=== PATIENT | male | born 1955 | race Caucasian/White ===

== ENCOUNTER → 2018-03-14 09:21 | Outpatient (CLI) | payer BC, SELFPAY ==
--- NOTE | 2018-03-14 09:24 | US_ITS ---
US abdomen complete HISTORY: Right-sided abdominal pain ITS.REASON: ABD PAIN ORDERING PHYSICIAN: Jaky Mendoza PATIENT AGE: 62 years COMPARISON: None FINDINGS: PANCREAS:Poorly demonstrated due to overlying bowel gas LIVER:No focal liver lesions demonstrated. Homogeneous echogenicity. No intrahepatic biliary ductal dilatation evident. There is increased echogenicity of the liver suggesting fatty infiltration. No focal liver lesions demonstrated. RIGHT KIDNEY:No hydronephrosis. 2 cm right renal cyst noted superiorly. LEFT KIDNEY:Unremarkable. No hydronephrosis. Normal size and echogenicity. GALLBLADDER:No gallstones, gallbladder wall thickening, pericholecystic fluid, or biliary dilatation. Common bile duct is 2 mm AORTA:No evidence of aneurysmal dilatation. SPLEEN:Unremarkable. Normal size and echogenicity ASCITES:None demonstrated. IMPRESSION: 1. No acute finding. 2. Fatty liver. 3. Unremarkable gallbladder. No gallstones. 4. 2 cm right renal cyst
== END ==
PROVIDERS: PCP Internal Medicine Adolescent Medicine; Visit Provider Nurse Practitioner Family
DX: R10.9 Unspecified abdominal pain (principal)
CPT/HCPCS: 76700

== ENCOUNTER → 2018-06-25 10:17 | Outpatient (CLI) | payer BC, SELFPAY ==
[2018-06-25 11:17] LABS: Alanine Aminotransferase 20 U/L (12-78); Albumin Level 4.1 gm/dL (3.4-5.0); Albumin/Globulin Ratio 1.2 (1.1-1.8); Alkaline Phosphatase 126 U/L (46-116); Anion Gap 13.2 mEq/L (5-15); Aspartate Amino Transferase 13 U/L (15-37); Bilirubin,Total 0.8 mg/dL (0.2-1.0); Blood Urea Nitrogen 18 mg/dL (7-18); Calcium 9.1 mg/dL (8.5-10.1); Carbon Dioxide 27 mmol/L (21.0-32.0); Chloride 104 mmol/L (98-107); Chol/HDL Ratio 5.7 (1-3.5); Cholesterol 224 mg/dL (140-200); Creatinine,Serum 0.97 mg/dL (0.70-1.30); Estimated Glomerular Filt Rate 79 ml/min (>60); GFR (African American) 96 ML/MIN (>60); Globulin 3.5 gm/dl (1.3-3.2); Glucose 169 mg/dL (74-106); HDL Cholesterol 39 mg/dL (27-67); LDL Cholesterol 161 mg/dL (0-130); Potassium 4.2 mmoL/L (3.5-5.1); Sodium 140 mmol/L (136-145); Total Protein,Serum 7.6 gm/dL (6.4-8.2); Triglycerides 120 mg/dL (30-200); VLDL Cholesterol 24 mg/dL (0-40)
[2018-06-25 11:58] LABS: Prostate Specific Ag Screen < 0.1 ng/mL (0.0-4.0)
[2018-06-25 12:00] LABS: Hemoglobin A1C 6.9 % (0.0-7.0)
== END ==
PROVIDERS: PCP Internal Medicine Adolescent Medicine; Visit Provider Internal Medicine Adolescent Medicine
DX: Z00.00 Encounter for general adult medical examination without abnormal findings (principal); E78.5 Hyperlipidemia, unspecified; E11.9 Type 2 diabetes mellitus without complications; Z85.46 Personal history of malignant neoplasm of prostate
CPT/HCPCS: 36415; 80053; 80061; 83036; G0103

== ENCOUNTER → 2018-08-14 15:07 | Outpatient (CLI) | payer BC, SELFPAY ==
[2018-08-14 15:26] LABS: Basophils % 0.3 % (0.1-2.0); Eosinophils # 0.1 K/mm3 (0.0-0.4); Eosinophils % 1.1 % (0.1-12.0); Hematocrit 53.2 % (42.0-52.0); Hemoglobin 17.6 g/dL (14.1-18.0); Lymphocytes # 2.3 K/mm3 (0.7-4.5); Lymphocytes % 17.6 % (10-50); Mean Corpuscular HGB Conc 33.1 g/dL (31.8-35.4); Mean Corpuscular Hemoglobin 30.1 pg (27.0-31.2); Mean Corpuscular Volume 90.7 fl (80-94); Monocytes # 0.8 K/mm3 (0.1-1.0); Monocytes % 5.7 % (1.7-9.3); Neutrophils % 75.4 % (37.0-80.0); Platelet Count 235 K/mm3 (142-424); Red Blood Count 5.86 M/mm3 (4.60-6.20); Red Cell Distribution Width 13.8 % (11.5-17.5); White Blood Count 13.3 K/mm3 (4.8-10.8)
[2018-08-14 16:00] LABS: Alanine Aminotransferase 37 U/L (12-78); Albumin Level 3.9 gm/dL (3.4-5.0); Albumin/Globulin Ratio 0.9 (1.1-1.8); Alkaline Phosphatase 127 U/L (46-116); Anion Gap 14.9 mEq/L (5-15); Aspartate Amino Transferase 84 U/L (15-37); Bilirubin,Total 1.1 mg/dL (0.2-1.0); Blood Urea Nitrogen 11 mg/dL (7-18); CKMB Relative Index 6.5 U/L (0-4.0); Calcium 8.6 mg/dL (8.5-10.1); Carbon Dioxide 26 mmol/L (21.0-32.0); Chloride 97 mmol/L (98-107); Creatine Kinase 402 U/L (39-308); Estimated Glomerular Filt Rate 62 ml/min (>60); GFR (African American) 75 ML/MIN (>60); Globulin 4.5 gm/dl (1.3-3.2); Glucose 297 mg/dL (74-106); Potassium 3.9 mmoL/L (3.5-5.1); Sodium 134 mmol/L (136-145); Thyroid Stimulating Hormone 0.93 uIU/ml (0.358-3.740); Total Protein,Serum 8.4 gm/dL (6.4-8.2)
[2018-08-14 16:06] LABS: Troponin I 12.38 ng/ml (0.00-0.06)
[2018-08-14 16:55] VITALS: BP 143/86; PULSE 80; RESP 20; O2SAT 94
[2018-08-14 16:57] VITALS: BMI 31.2
[2018-08-14 17:00] VITALS: BP 154/87; PULSE 83; RESP 20; O2SAT 94
[2018-08-14 17:05] VITALS: BP 169/110; PULSE 84; RESP 20; O2SAT 94
[2018-08-14 17:10] VITALS: BP 153/106; PULSE 87; RESP 20; O2SAT 94
[2018-08-14 17:15] VITALS: BP 130/82; PULSE 84; PULSE 85; PULSE 87; RESP 20; O2SAT 93; O2SAT 94
[2018-08-14 17:40] VITALS: BP 137/92; PULSE 82; RESP 20; O2SAT 100
== END ==
PROVIDERS: Internal Medicine; PCP Internal Medicine Adolescent Medicine; Visit Provider Nurse Practitioner Family
DX: R07.89 Other chest pain (principal); R06.09 Other forms of dyspnea
CPT/HCPCS: 36415; 80053; 82550; 82553; 84443; 84484; 85025; 93005; 99152; 99153; C1725; C1769; C1876; J1644

== ENCOUNTER 2018-08-14 15:49 | Inpatient (IN) ==
[2018-08-14 16:08] LABS: Basophils # 0.1 K/mm3 (0-0.2); Basophils % 0.4 % (0.1-2.0); Eosinophils # 0.1 K/mm3 (0.0-0.4); Eosinophils % 0.4 % (0.1-12.0); Hematocrit 52.5 % (42.0-52.0); Hemoglobin 17.6 g/dL (14.1-18.0); Lymphocytes # 2.3 K/mm3 (0.7-4.5); Lymphocytes % 18.3 % (10-50); Mean Corpuscular HGB Conc 33.4 g/dL (31.8-35.4); Mean Corpuscular Hemoglobin 30.2 pg (27.0-31.2); Mean Corpuscular Volume 90.3 fl (80-94); Mean Platelet Volume 7.8 fl (7.4-10.4); Monocytes # 0.8 K/mm3 (0.1-1.0); Monocytes % 6.2 % (1.7-9.3); Neutrophils # 9.2 K/mm3 (1.8-7.8); Neutrophils % 74.6 % (37.0-80.0); Platelet Count 233 K/mm3 (142-424); Red Blood Count 5.82 M/mm3 (4.60-6.20); Red Cell Distribution Width 13.7 % (11.5-17.5); White Blood Count 12.3 K/mm3 (4.8-10.8)
--- NOTE | 2018-08-14 16:10 | Emergency Department Note ---
ED Disposition Clinical Impression: Acute inferolateral myocardial infarction Disposition: Admitted As Inpatient Condition on Discharge: Critical Referrals: Provider,Referral, [Primary Care Provider] - - Critical Care Critical Care Time: Yes (30 minutes) Attestation: On 08/14/18, the high probability of a clinically significant, sudden or life threatening deterioration of the following system(s) required my full and direct attention, intervention and personal management. The time I documented below is in addition to time spent performing reported procedures but includes the following listed in this critical care notation. Vital system(s) involved:: Circulatory Failure, Central Nervous System, Metabolic Failure My critical care processes included: Assessment & monitoring of V/S Comment: Discussed case with Wire Steward operations project manager (Dr. Kohler). Patient taken to mill laborer from ED. Medical Decision Making - Medical Records Medical records reviewed: Yes: I reviewed the patient's medical records. - Klaus Inquiry Pt receiving controlled substance: No Klaus was queried for this patient: No Vital Signs: 08/14/18 15:50 Temperature 98.4 F Temperature Source Oral Pulse Rate [Apical] 94 H Respiratory Rate 16 Blood Pressure [Right Arm] 145/106 H Blood Pressure Mean [Right Arm] 119 Blood Pressure Source [Right Arm] Automatic Cuff Blood Pressure Position [Right Arm] Sitting 02 Sat by Pulse Oximetry 96 Oxygen Delivery Method Room Air Orders (Tests/Meds): ED MEDICATIONS Discontinued Medications Generic Name Dose Route Start Last Admin Trade Name Freq PRN Reason Stop Dose Admin Heparin Sodium (Porcine) 10,000 unit 08/14/18 15:53 Heparin 1,000 Units/Ml 10ml Vial (Service Unit Operator) IV 08/14/18 15:54 ONCE ONE Ticagrelor 180 mg 08/14/18 15:51 Brilinta 90mg Tablet PO 08/14/18 15:52 ONCE ONE ORDERS Category Date Time Status Chest XR -- portable [XR chest portable] Stat Exams 08/14/18 15:57 Ordered CKMB [Creatine Kinase MB] Stat Lab 08/14/18 15:55 Ordered Complete Blood Count Auto Diff Stat Lab 08/14/18 15:55 Ordered Comprehensive Metabolic Panel Stat Lab 08/14/18 15:55 Ordered Creatine Kinase Stat Lab 08/14/18 15:55 Ordered Troponin I Stat Lab 08/14/18 15:55 Ordered - Radiology Data #1 Image(s): Chest CXR pending - ECG Data Tracing #1 I reviewed this ECG and interpreted as documented below: Additional Comments: Acute inferolateral NM Chest Pain HPI - General Chief Complaint: Chest Pain Stated Complaint: chest pain Time Seen by Provider: 08/14/18 15:50 Mode of Arrival: Wheelchair Limitations: No Limitations Description of Symptoms (Recalled from ER Triage Doc. by RN): Pt reports had chest heaviness today. Pt was seen by PCP today and sent for outpt testing pt brought to ER from respiratory therapy department. Pt denies chest pain/heaviness at this time. Pt reports "I just don't feel very good, I'm tired feeling". - History of Present Illness HPI narrative: Patient brought down to ED from PCP clinic for abnormal EKG. Patient denies any acute complains. Denies any chest pain, sob. States he had moderate chest pain yesterday AM. Symptoms lasted for several hours. Did no seek help at that time. Denies fever, chills, cough. No ASA given. Patient reports allergy to NSAIDs. Onset (ago): day(s) (1) Duration: now resolved Activity at onset: during rest Pain location: substernal Severity: moderate Quality: tightness, aching, heaviness Pain radiation: none Relieving factors: rest Exacerbating factors: nothing - Related Data Home Medications Medication Instructions Recorded Confirmed Metformin HCl [Metformin HCl ER] 500 mg PO BID 08/14/18 08/14/18 Allergies Allergy/AdvReac Type Severity Reaction Status Date / Time meloxicam [From [facility]OBIC] Allergy Unknown Unverified 09/04/17 14:58 [facility] History I have reviewed the patient's past medical history: Yes ROS Obtained: Yes All systems reviewed & no additional complaints Physical Exam - General General appearance: alert, in no apparent distress - Head Head exam: atraumatic, normocephalic, normal inspection - Eye Eye exam: Present: normal appearance, PERRL, EOMI - ENT ENT exam: Present: normal exam, normal oropharynx, mucous membranes moist, TM's normal bilaterally, normal external ear exam - Neck Neck exam: Present: normal inspection, full ROM, trachea midline. Absent: meningismus, lymphadenopathy - Chest Chest inspection: Present: normal inspection, symmetric chest wall rise. Absent: tenderness - Respiratory Respiratory exam: Present: normal lung sounds bilaterally. Absent: respiratory distress - Cardiovascular Cardiovascular exam: Present: regular rate, normal rhythm. Absent: JVD - Abdominal Exam Abdominal exam: Present: soft, normal bowel sounds. Absent: distention, tenderness, guarding - Extremities Exam Extremities exam: Present: normal inspection, full ROM, normal capillary refill. Absent: calf tenderness - Back Exam Back exam: Present: normal inspection. Absent: tenderness - Neurological Exam Neurological exam: Present: alert, oriented X3 - Psychiatric Psychiatric exam: Present: normal affect, normal mood - Skin Skin exam: Present: warm, dry, intact, normal color - Lymphatic Lymphatic Findings: no adenopathy
[2018-08-14 16:14] LABS: Anion Gap 15.7 mEq/L (5-15); Calcium 9.1 mg/dL (8.5-10.1); Potassium 3.7 mmoL/L (3.5-5.1)
[2018-08-14 16:29] LABS: INR 0.95 (0.9-1.1); Prothrombin Time 9.8 seconds (9.4-11.8)
--- NOTE | 2018-08-14 18:27 | History & Physical Report ---
*Admission Date: 08/14/18 *Chief complaint: fatigue, exertional dyspnea *History of present illness: 62 year old male with a h/o diabetes, previous tobacco use, hyperlipidemia and HTN presented to PCP office for evaluation of chest pressure and exertional shortness of breath. Patient reports he woke up the night before last and it felt like "a concrete block was laying on my chest." Anterior chest pressure persisted through the day yesterday despite tums, Duexis and pepcid. His give him zantac last evening. States he "belched a bunch" and pressure resolved around 0200 this morning. Blood pressure was elevated 180/100's last night, as well. Patient took lisinopril in the past, stopped taking after approx one month as it made him feel "horrible." He has declined b/p meds and statin since that time. LDL last month 154. Highest A1C was 7, at that point earlier this year he finally agreed to metformin. Further reports he has felt fatigued over the last week, states "I don't have enough energy to move." Reports shortness of breath with exertion that has increased over the last 3-6 months. with chronic lung disease reports "he was more short of breath then me when he climbed the ladder to put Nadia lights last week." Currently denies any chest pressure or shortness of breath. Patient was sent from office to [facility] for EKG and labs. EKG revealed ST elevation in inferior leads and troponin of 12. He was sent to the ED where recyclable materials sorter was activated. In the recyclable materials sorter patient received 2 stents in distal circumflex. He was noted to have severe inferior apical hypokinesis with EF 40-45% and multiple other lesions that will require further invention. (See cath report for details). Patient did well during the procedure and was admitted to step-down unit for further evaluation. [facility] History I have reviewed the patient's past medical history: Yes Medical History: Reports:: Cancer (prostate), Diabetes Mellitus Type 2, Heart Murmur Denies:: Diabetes Mellitus Type 1 Laterality Cases: Bilateral: Other Other Surgeries: Yes: Cardiac Catheterization (08/14/18), Coronary Stent (08/14/18) - *Social History Educational Level: Completed High School Smoking Status: Former smoker #Yrs smoked (if former smoker): 52 Smoking End Date: 11 years ago Alcohol Intake: never Occupational Status: retired Housing: house Household Members: spouse - Psychiatric History Expresses thoughts of harming self/others: None Suicide Plan Description: No Plan *Family Hx:: Cancer, Diabetes, Heart Attack, Hypertension Review of Systems - Review of Systems Review of systems:: pertinent systems reviewed and negative unless documented below - Constitutional Reports fatigue - *Cardiovascular Reports chest pain, Reports shortness of breath with activity Meds Home Medications Medication Instructions Recorded Confirmed Type Metformin HCl [Metformin HCl ER] 500 mg PO BID 08/14/18 08/14/18 History Allergies Allergy/AdvReac Type Severity Reaction Status Date / Time meloxicam [From [email or web address]] Allergy Unknown Verified 08/14/18 17:24 Exam Vital signs and Labs for Last 24 Hours: Temp Pulse Resp BP Pulse Ox 97.8 F 79 20 139/78 96 08/14/18 17:55 08/14/18 17:55 08/14/18 17:55 08/14/18 17:55 08/14/18 17:55 Laboratory Results - last 24 hr 08/14/18 15:55: WBC 12.3 H, RBC 5.82, Hgb 17.6, Hct 52.5 H, MCV 90.3, MCH 30.2, MCHC 33.4, RDW 13.7, Plt Count 233, MPV 7.8, Neut % (Auto) 74.6, Lymph % (Auto) 18.3, Loup % (Auto) 6.2, Eos % (Auto) 0.4, Baso % (Auto) 0.4, Neut # (Auto) 9.2 H, Lymph # (Auto) 2.3, Loup # (Auto) 0.8, Eos # (Auto) 0.1, Baso # (Auto) 0.1 08/14/18 15:55: Sodium 134 L, Potassium 3.7, Chloride 98, Carbon Dioxide 24, Anion Gap 15.7 H, BUN 11, Creatinine 1.12, Estimated Creat Clear 101, Estimated GFR 67, Est GFR ( Amer) 81, Glucose 275 H, Calcium 9.1 08/14/18 15:55: PT 9.8, INR 0.95 08/14/18 17:29: Activated Clotting Time 318 H* 08/14/18 17:44: Activated Clotting Time 310 H* I & O for Last 24 hours: Intake & Output 08/12/18 08/13/18 08/14/18 08/15/18 11:59 11:59 11:59 11:59 Intake Total 240 / 240 Balance 240 / 240 Weight 225 lb 4.011 oz Narrative: Alert and oriented x3. Rate and rhythm regular. No murmur in supine or upright position. Lung sounds clear and equal. Abdomen soft and nontender. Normoactive bowel sounds. No LE edema. Pulses 2+ bilaterally. No carotid bruit. No JVD. ENT exam unremarkable. Skin pink, warm and dry. No acute neuro deficits Assessment and Plan (1) Type 2 diabetes mellitus Current visit: Yes Status: Chronic Qualifiers: Diabetes mellitus skilled nursing insulin use: without skilled nursing use Diabetes mellitus complication status: without complication Qualified Code(s): E11.9 - Type 2 diabetes mellitus without complications Category: Medical Code(s): E11.9 - Type 2 diabetes mellitus without complications (2) Hyperlipemia Current visit: Yes Status: Chronic Qualifiers: Hyperlipidemia type: pure hypercholesterolemia Qualified Code(s): E78.00 - Pure hypercholesterolemia, unspecified; E78.0 - Pure hypercholesterolemia Category: Medical Code(s): E78.5 - Hyperlipidemia, unspecified (3) Essential (primary) hypertension Current visit: Yes Status: Chronic Category: Medical Code(s): I10 - Essential (primary) hypertension (4) History of tobacco abuse Current visit: Yes Status: Resolved Category: Medical Code(s): Z87.891 - Personal history of nicotine dependence (5) History of prostate cancer Current visit: Yes Status: Chronic Category: Medical Code(s): Z85.46 - Personal history of malignant neoplasm of prostate (6) Acute inferolateral myocardial infarction Current visit: Yes Status: Acute Category: Medical Code(s): I21.19 - ST elevation (STEMI) myocardial infarction involving other coronary artery of inferior wall - Assessment and plan all Dx Assessment and Plan for all problems:: Admit to stepdown for monitoring. DAPT with aspirin and brilinta. Start beta caleb. Cardiology recommends lisinopril which patient states made him feel "horrible" in the past. Symptoms were likely unrelated to lisinopril, will disc uss with patient in the am and consider trial tomorrow. Echo scheduled in the am
[2018-08-15 06:05] LABS: Basophils % 0.4 % (0.1-2.0); Eosinophils # 0.1 K/mm3 (0.0-0.4); Eosinophils % 0.8 % (0.1-12.0); Hematocrit 48.3 % (42.0-52.0); Lymphocytes # 2.3 K/mm3 (0.7-4.5); Lymphocytes % 20.9 % (10-50); Mean Corpuscular HGB Conc 33.2 g/dL (31.8-35.4); Mean Corpuscular Hemoglobin 29.6 pg (27.0-31.2); Mean Corpuscular Volume 89.3 fl (80-94); Mean Platelet Volume 7.8 fl (7.4-10.4); Monocytes # 0.7 K/mm3 (0.1-1.0); Platelet Count 221 K/mm3 (142-424); Red Blood Count 5.41 M/mm3 (4.60-6.20); Red Cell Distribution Width 13.7 % (11.5-17.5); White Blood Count 11.1 K/mm3 (4.8-10.8)
[2018-08-15 06:19] LABS: Calcium 8.7 mg/dL (8.5-10.1)
[2018-08-15 06:35] LABS: Chol/HDL Ratio 4.3 (1-3.5)
--- NOTE | 2018-08-15 07:41 | Pharmacy Consult Notes ---
[facility] Pharmacy VTE Monitoring - Patient Demographics Admission date: 08/14/18 Report Date: 08/15/18 Time: 07:40 Allergies/Adverse Reactions: Patient Allergies meloxicam [From MOBIC] Allergy (Unknown, Verified 08/14/18 17:24) Height: 1.8 m Weight: 104.468 kg Patient Problems: Current Active Problems Acute inferolateral myocardial infarction (Acute) Type 2 diabetes mellitus (Chronic) Hyperlipemia (Chronic) Essential (primary) hypertension (Chronic) History of prostate cancer (Chronic) - VTE Risk Labs: VTE Related Lab Results Hgb 17.6 g/dL (14.1-18.0) 08/14/18 15:55 Hct 52.5 % (42.0-52.0) H 08/14/18 15:55 Plt Count 233 K/mm3 (142-424) 08/14/18 15:55 PT 9.8 seconds (9.4-11.8) 08/14/18 15:55 INR 0.95 (0.9-1.1) 08/14/18 15:55 BUN 11 mg/dL (7-18) 08/14/18 15:55 Creatinine 1.12 mg/dL (0.70-1.30) 08/14/18 15:55 Estimated Creat Clear 101 mL/min (50-200) 08/14/18 15:55 VTE Score: 4 VTE Risk Level: Low Risk - Prophylaxis VTE Prophylaxis Ordered?: Yes Types of VTE Prophylaxis: TEDS Knee High Location of Applied Device: Bilateral Lower Extremeties - VTE Diagnosis Confirmed Treatment or plan recommended: Continue Current Treatment
--- NOTE | 2018-08-15 08:01 | Progress Note ---
Internal Medicine - PN: Subj *Date: 08/15/18 *Time: 07:40 Interval history: Patient has not had any further chest pressure or shortness of breath through the night. He had occasional PAC's through the night and required one prn dose of clonidine for SBP 170. This morning SBP 120's. He feels well and has no complaints. Exam Vital signs and Labs for Last 24 Hours: Temp Pulse Resp BP Pulse Ox 97.8 F 75 17 135/69 96 08/14/18 17:55 08/15/18 06:00 08/15/18 06:00 08/15/18 06:00 08/15/18 06:00 Laboratory Results - last 24 hr 08/14/18 15:55: WBC 12.3 H, RBC 5.82, Hgb 17.6, Hct 52.5 H, MCV 90.3, MCH 30.2, MCHC 33.4, RDW 13.7, Plt Count 233, MPV 7.8, Neut % (Auto) 74.6, Lymph % (Auto) 18.3, Burke % (Auto) 6.2, Eos % (Auto) 0.4, Baso % (Auto) 0.4, Neut # (Auto) 9.2 H, Lymph # (Auto) 2.3, Burke # (Auto) 0.8, Eos # (Auto) 0.1, Baso # (Auto) 0.1 08/14/18 15:55: Sodium 134 L, Potassium 3.7, Chloride 98, Carbon Dioxide 24, Anion Gap 15.7 H, BUN 11, Creatinine 1.12, Estimated Creat Clear 101, Estimated GFR 67, Est GFR ( Amer) 81, Glucose 275 H, Calcium 9.1 08/14/18 15:55: PT 9.8, INR 0.95 08/14/18 17:29: Activated Clotting Time 318 H* 08/14/18 17:44: Activated Clotting Time 310 H* 08/14/18 20:33: POC Glucose 226 H 08/15/18 05:50: Triglycerides 135, Cholesterol 175, LDL Cholesterol 107, VLDL Cholesterol 27, HDL Cholesterol 41, Cholesterol/HDL Ratio 4.3 H 08/15/18 06:12: POC Glucose 208 H I & O for Last 24 hours: Intake & Output 08/12/18 08/13/18 08/14/1829/18 11:59 11:59 11:59 11:59 Intake Total 250 / 250 Balance 250 / 250 Weight 230 lb 5 oz Narrative: Alert and oriented x3. Rate and rhythm regular. No LE edema. No murmur. Lung sounds clear and equal. Abdomen soft and nontender Assessment and Plan (1) Type 2 diabetes mellitus Current visit: Yes Status: Chronic Qualifiers: Diabetes mellitus escort blind insulin use: without escort blind use Diabetes mellitus complication status: without complication Qualified Code(s): E11.9 - Type 2 diabetes mellitus without complications Category: Medical Code(s): E11.9 - Type 2 diabetes mellitus without complicat ions (2) Hyperlipemia Current visit: Yes Status: Chronic Qualifiers: Hyperlipidemia type: pure hypercholesterolemia Qualified Code(s): E78.00 - Pure hypercholesterolemia, unspecified; E78.0 - Pure hypercholesterolemia Category: Medical Code(s): E78.5 - Hyperlipidemia, unspecified (3) Essential (primary) hypertension Current visit: Yes Status: Chronic Category: Medical Code(s): I10 - Essential (primary) hypertension (4) History of tobacco abuse Current visit: Yes Status: Resolved Category: Medical Code(s): Z87.891 - Personal history of nicotine dependence (5) History of prostate cancer Current visit: Yes Status: Chronic Category: Medical Code(s): Z85.46 - Personal history of malignant neoplasm of prostate (6) Acute inferolateral myocardial infarction Current visit: Yes Status: Acute Category: Medical Code(s): I21.19 - ST elevation (STEMI) myocardial infarction involving other coronary artery of inferior wall - Assessment and plan all Dx Assessment and Plan for all problems:: Start ARB today as he had intolerance to KALPESH-I in the past. Discussed importance of medication compliance to optimize CV health. Discussed importance of activity restriction until remaining coronary lesions have been repaired. Continue beta caleb. Will monitor b/p, may increase dose later today. Continue DAPT. Transfer to [facility] bed with telemetry. Will monitor overnight and consider d/c home in the am.
--- NOTE | 2018-08-15 08:31 | Consult Report ---
History of Present Illness Consult date: 08/15/18 Requesting physician: Jimmy Echols Consult reason: chest pain Chief complaint: SOA, Fatigue and chest pressure Additional Medical History:: 1. Diabetes mellitus, since 2007 2. History of tobacco use discontinued 11 years ago, previously smoked at least a pack a day A. Mild COPD per patient 3. History of prostate cancer, status post surgery approximately 2007, with no chemo or radiation therapy 4. History of hypertension, untreated 5. Hyperlipidemia, untreated 6. Acute ST segment LA, 08/14/2018 A. Cardiac catheterization, 08/14/2018, ANGIOGRAPHIC RESULTS: 1. The left main artery is normal 2. The left anterior descending artery has ostial 40% stenosis followed by proximal 70% stenosis followed by additional 70-80% stenosis followed by mid vessel 60% stenoses. Distally there are 40% stenoses. 3. The circumflex artery is a co-dominant vessel and has an ostial 60- 70% stenosis followed by a proximal 50% stenoses and 30-40% stenoses throughout the large first obtuse marginal artery. Distally the first obtuse marginal artery is bluntly occluded and the infarct vessel. Following stenting the mid and distal segment was widely patent with good LISE III distal flow 4. The right coronary artery is a co-dominant vessel with proximal 30% mid vessel 40% stenoses and distal 40% stenosis. The distal posterior descending artery has 60 and 70% stenoses while the posterior lateral branch has an ostial 50% and mid vessel 30% stenoses 5. The CARTY ventriculogram reveals left ventricular dilatation with inferior apical severe hypokinesis estimated ejection fraction 40-45% 6. The left ventricular end-diastolic pressure 20 mmHg IMPRESSION: 1. Coronary artery disease as described above 2. ST elevation infarct vessel involve the distal first obtuse marginal artery off the codominant circumflex artery with 100% occlusion reduced to 0% with 2 drug-eluting stents 3. Persistent large regional wall motion abnormality with reduced ejection fraction 4. Mildly elevated LVEDP 5. Persistent moderate to severe disease in the proximal mid LAD and ostial proximal codominant circumflex artery B. Echo, 08/15/2018, pending History of present illness: 62 year old male with a h/o diabetes, previous tobacco use, hyperlipidemia and HTN presented to PCP office for evaluation of chest pressure and exertional shortness of breath. Patient reports he woke up the night before last and it felt like "a concrete block was laying on my chest." Anterior chest pressure persisted through the day yesterday despite tums, Duexis and pepcid. His give him zantac last evening. States he "belched a bunch" and pressure resolved around 0200 this morning. Blood pressure was elevated 180/100's last night, as well. Patient took lisinopril in the past, stopped taking after approx one month as it made him feel "horrible." He has declined b/p meds and statin since that time. LDL last month 154. Highest A1C was 7, at that point earlier this year he finally agreed to metformin. Further reports he has felt fatigued over the last week, states "I don't have enough energy to move." Reports shortness of breath with exertion that has increased over the last 3-6 months. with chronic lung disease reports "he was more short of breath then me when he climbed the ladder to put [place] lights last week." Currently denies any chest pressure or shortness of breath. Patient was sent from office to [facility] for EKG and labs. EKG revealed ST elevation in inferior leads and troponin of 12. He was sent to the ED where canvas shop laborer was activated. In the canvas shop laborer patient received 2 stents in distal circumflex. He was noted to have severe inferior apical hypokinesis with EF 40-45% and multiple other lesions that will require further invention. (See cath report for details). Patient did well during the procedure and was admitted to step-down unit for further evaluation. The above per Jaky Mendoza APRN for Dr. Harmon [facility] History Medical History: Reports:: Cancer (prostate), Diabetes Mellitus Type 2, Heart Murmur Denies:: Diabetes Mellitus Type 1 Laterality Cases: Bilateral: Other Other Surgeries: Yes: Cardiac Catheterization (08/14/18), Coronary Stent (08/14/18) - *Social History Educational Level: Completed High School Smoking Status: Former smoker #Yrs smoked (if former smoker): 52 Smoking End Date: 11 years ago Alcohol Intake: never Occupational Status: retired Housing: house Household Members: spouse - Psychiatric History Expresses thoughts of harming self/others: None Suicide Plan Description: No Plan *Family Hx:: Cancer, Diabetes, Heart Attack, Hypertension Meds Home Medications Medication Instructions Recorded Confirmed Type Metformin HCl [Metformin HCl ER] 500 mg PO BID 08/14/18 08/14/18 History Allergies Allergy/AdvReac Type Severity Reaction Status Date / Time meloxicam [From [facility]] Allergy Unknown Verified 08/14/18 17:24 Review of Systems - *Cardiovascular Reports chest pain, Reports shortness of breath - *Respiratory Reports shortness of breath, Reports shortness of breath with activity - *Gastrointestinal Denies abdominal pain - *Genitourinary Denies blood in urine - *Musculoskeletal Denies abnormal walking - *Neurologic Denies abnormal walking, Denies abnormal speech, Denies seizure-like activity Exam Vital signs and Labs for Last 24 Hours: Temp Pulse Resp BP Pulse Ox 97.8 F 75 17 135/69 93 L 08/14/18 17:55 08/15/18 06:00 08/15/18 06:00 08/15/18 06:00 08/15/18 07:36 Laboratory Results - last 24 hr 08/14/18 15:55: WBC 12.3 H, RBC 5.82, Hgb 17.6, Hct 52.5 H, MCV 90.3, MCH 30.2, MCHC 33.4, RDW 13.7, Plt Count 233, MPV 7.8, Neut % (Auto) 74.6, Lymph % (Auto) 18.3, [place] % (Auto) 6.2, Eos % (Auto) 0.4, Baso % (Auto) 0.4, Neut # (Auto) 9.2 H, Lymph # (Auto) 2.3, [place] # (Auto) 0.8, Eos # (Auto) 0.1, Baso # (Auto) 0.1 08/14/18 15:55: Sodium 134 L, Potassium 3.7, Chloride 98, Carbon Dioxide 24, Anion Gap 15.7 H, BUN 11, Creatinine 1.12, Estimated Creat Clear 101, Estimated GFR 67, Est GFR ( Amer) 81, Glucose 275 H, Calcium 9.1 08/14/18 15:55: PT 9.8, INR 0.95 08/14/18 17:29: Activated Clotting Time 318 H* 08/14/18 17:44: Activated Clotting Time 310 H* 08/14/18 20:33: POC Glucose 226 H 08/15/18 05:50: Triglycerides 135, Cholesterol 175, LDL Cholesterol 107, VLDL Cholesterol 27, HDL Cholesterol 41, Cholesterol/HDL Ratio 4.3 H 08/15/18 06:12: POC Glucose 208 H I & O for Last 24 hours: Intake & Output 08/12/18 08/13/18 08/14/18 08/15/18 11:59 11:59 11:59 11:59 Intake Total 610 / 610 Balance 610 / 610 Weight 230 lb 5 oz - *Routine Neck Exam Present: supple. Absent: JVD, carotid bruit - *Routine Respiratory Exam Present: CTA bilaterally. Absent: accessory muscle use, rales, rhonchi, wheezes - *Routine Cardiovascular Exam Present: RRR. Absent: murmur, gallop, rubs - *Routine Abdominal Exam Present: soft. Absent: tenderness, distended, guarding - *Routine Extremities Exam Absent: edema, calf tenderness - *Routine Neurological Exam Present: alert, oriented X3, moving all extremities Assessment and Plan (1) Type 2 diabetes mellitus Current visit: Yes Status: Chronic Qualifiers: Diabetes mellitus toll bridge attendant insulin use: without toll bridge attendant use Diabetes mellitus complication status: without complication Qualified Code(s): E11.9 - Type 2 diabetes mellitus without complications Category: Medical Code(s): E11.9 - Type 2 diabetes mellitus without complications (2) Hyperlipemia Current visit: Yes Status: Chronic Qualifiers: Hyperlipidemia type: pure hypercholesterolemia Qualified Code(s): E78.00 - Pure hypercholesterolemia, unspecified; E78.0 - Pure hypercholesterolemia Category: Medical Code(s): E78.5 - Hyperlipidemia, unspecified (3) Essential (primary) hypertension Current visit: Yes Status: Chronic Category: Medical Code(s): I10 - Essential (primary) hypertension (4) History of tobacco abuse Current visit: Yes Status: Resolved Category: Medical Code(s): Z87.891 - Personal history of nicotine dependence (5) History of prostate cancer Current visit: Yes Status: Chronic Category: Medical Code(s): Z85.46 - Personal history of malignant neoplasm of prostate (6) Acute inferolateral myocardial infarction Current visit: Yes Status: Acute Category: Medical Code(s): I21.19 - ST elevation (STEMI) myocardial infarction involving other coronary artery of inferior wall - Assessment and plan all Dx Assessment and Plan for all problems:: 1. Continue aspirin and Brilinta for one year 2. Coreg has been started and due to his history of intolerance of lisinopril with possible cough, will start losartan 25 mg daily. 3. Continue to monitor for 48 hours and then if stable possible discharge home. 4. Echocardiogram has been performed this morning with results pending at this time. 5. Strongly encouraged medication compliance.
--- NOTE | 2018-08-15 14:06 | Cardiology Report ---
PROCEDURE: 2-D M-mode and color Doppler study INDICATIONS FOR THE TEST: Chest pain COPD Heart Murmur+ Tobacco Smoking Palpitations Fatigue Syncope Edema Hypertension+Diabetes Mellitus+ Rheumatic Fever SOB+CONTRERAS Obesity Hyperlipidemia+ Family History HD Additional History STENTS 08/14/18 PATIENT INFORMATION HEIGHT:71 WEIGHT:225 GENDER: Male B/P:139/78 2-D/M-MODE INTERPRETATION: 2-D MEASUREMENTS OBSERVED VALUES IN CMS Right Ventricular Dimension (RVDd) 3.1 Interventricular Septum (Thickness)(IVsd) 1.4 Left Ventricular Internal Dimensions(LVIDd) 5.1 Left Ventricular Posterior Wall (Thickness)(LVPWd) 1.5 Aortic Root 3.4 Aortic Cusp Separation 1.9 Left Atrial Dimensions (LAD) 3.9 2D 1. Left atrium is mildly enlarged, left ventricle is normal size, mild concentric left ventricular hypertrophy, visually estimated ejection fraction of 55% with no regional wall motion abnormality. 2. The right atrium and right ventricle are normal size and contractility. 3. The aortic valve is minimally thickened and fibrosed. 4. The mitral and tricuspid valve leaflets are minimally thickened. 5. The pulmonic valve is poorly visualized 6. No significant pericardial effusion noted. DOPPLER INTERROGATION: Doppler interrogation of the aortic, mitral and tricuspid valvular presence of mild mitral and tricuspid regurgitation, tricuspid regurgitation jet velocity is inadequate for calculation of the right ventricular systolic pressure, grade 1 diastolic dysfunction seen without tissue Doppler evidence of raised left atrial pressure. CONCLUSION: 1. Mildly enlarged left atrium, normal left ventricular size, mild concentric left ventricular hypertrophy, visually estimated ejection fraction 55% with no regional wall motion abnormality, grade 1 diastolic dysfunction seen without tissue Doppler evidence atrial pressure. 2. Mild mitral and tricuspid regurgitation 3. No significant pericardial effusion noted.
--- NOTE | 2018-08-16 08:39 | Discharge Summary ---
General - General Admission date:: 08/14/18 Discharge date: 08/16/18 HPI HPI: 62 year old male with a h/o diabetes, previous tobacco use, hyperlipidemia and HTN presented to PCP office for evaluation of chest pressure and exertional shortness of breath. Patient reports he woke up the night before last and it felt like "a concrete block was laying on my chest." Anterior chest pressure persisted through the day yesterday despite tums, Duexis and pepcid. His give him zantac last evening. States he "belched a bunch" and pressure resolved around 0200 this morning. Blood pressure was elevated 180/100's last night, as well. Patient took lisinopril in the past, stopped taking after approx one month as it made him feel "horrible." He has declined b/p meds and statin since that time. LDL last month 154. Highest A1C was 7, at that point earlier this year he finally agreed to metformin. Further reports he has felt fatigued over the last week, states "I don't have enough energy to move." Reports shortness of breath with exertion that has increased over the last 3-6 months. with chronic lung disease reports "he was more short of breath then me when he climbed the ladder to put [place] lights last week." Currently denies any aki st pressure or shortness of breath. Patient was sent from office to [facility] for EKG and labs. EKG revealed ST elevation in inferior leads and troponin of 12. He was sent to the ED where rangelands conservation laborer was activated. In the rangelands conservation laborer patient received 2 stents in distal circumflex. He was noted to have severe inferior apical hypokinesis with EF 40-45% and multiple other lesions that will require further invention. (See cath report for details). Patient did well during the procedure and was admitted to step-down unit for further evaluation. Hospital Course Hospital Course: Patient was admitted with diagnosis of STEMI. Taken urgently to rangelands conservation laborer. Cardio findings and reports are noted below: ANGIOGRAPHIC RESULTS: 1. The left main artery is normal 2. The left anterior descending artery has ostial 40% stenosis followed by proximal 70% stenosis followed by additional 70-80% stenosis followed by mid vessel 60% stenoses. Distally there are 40% stenoses. 3. The circumflex artery is a co-dominant vessel and has an ostial 60-70% stenosis followed by a proximal 50% stenoses and 30-40% stenoses throughout the large first obtuse marginal artery. Distally the first obtuse marginal artery is bluntly occluded and the infarct vessel. Following stenting the mid and distal segment was widely patent with good LISE III distal flow 4. The right coronary artery is a co-dominant vessel with proximal 30% mid vessel 40% stenoses and distal 40% stenosis. The distal posterior descending artery has 60 and 70% stenoses while the posterior lateral branch has an ostial 50% and mid vessel 30% stenoses 5. The CARTY ventriculogram reveals left ventricular dilatation with inferior apical severe hypokinesis estimated ejection fraction 40-45% 6. The left ventricular end-diastolic pressure 20 mmHg IMPRESSION: 1. Coronary artery disease as described above 2. ST elevation infarct vessel involve the distal first obtuse marginal artery off the codominant circumflex artery with 100% occlusion reduced to 0% with 2 drug-eluting stents 3. Persistent large regional wall motion abnormality with reduced ejection fraction 4. Mildly elevated LVEDP 5. Persistent moderate to severe disease in the proximal mid LAD and ostial proximal codominant circumflex artery PLAN: 1. Brilinta and aspirin 2. LDL less than 55 3. Carvedilol and lisinopril with plans to uptitrate as patient hemodynamically tolerated 4. In 2 weeks and will like to bring patient back to the S[facility] [employer] Supervisor with plans to revascularize the LAD and circumflex artery 5. Echocardiogram to evaluate for mitral regurgitation 6. Cardiac rehabilitation 7. Avoidance of tobacco products Patient was observed for a couple of days after the heart cath. He was started on losartan instead of lisinopril because of previous intolerance. Otherwise did well. Had some Tylenol for headache otherwise felt good. He was able to walk around hospital floor without chest pain or further heaviness He will be discharged today with medication as noted, short-term follow-up in my office for blood pressure and short-term follow-up with cardiology for evaluation for revascularization appointment. Objective Vital signs: Temp Pulse Resp BP Pulse Ox 98.6 F 80 80 H 123/74 93 L 08/16/18 08:00 08/16/18 08:00 08/16/18 08:00 08/16/18 08:00 08/16/18 08:00 Narrative: Patient is alert, oriented x3. ENT exam clear, oropharynx clear. Cranial nerves intact. Lungs are clear, heart rate regular. Abdomen soft and nontender. No edema, no clubbing or cyanosis. Neurologic exam intact. No rash noted. Results Labs on day of discharge: Labs from last 24 hours 08/16/18 08/15/18 08/15/18 05:16 20:48 16:24 WBC RBC Hgb Hct MCV MCH MCHC RDW Plt Count MPV Neut % (Auto) Lymph % (Auto) [place] % (Auto) Eos % (Auto) Baso % (Auto) Neut # (Auto) Lymph # (Auto) [place] # (Auto) Eos # (Auto) Baso # (Auto) Sodium Potassium Chloride Carbon Dioxide Anion Gap BUN Creatinine Estimated Creat Clear Estimated GFR Est GFR ( Amer) Glucose POC Glucose 206 H 290 H 180 H Calcium 08/15/18 08/15/18 08/15/18 11:37 05:50 05:50 WBC 11.1 H RBC 5.41 Hgb 16.0 Hct 48.3 MCV 89.3 MCH 29.6 MCHC 33.2 RDW 13.7 Plt Count 221 MPV 7.8 Neut % (Auto) 72.0 Lymph % (Auto) 20.9 [place] % (Auto) 6.0 Eos % (Auto) 0.8 Baso % (Auto) 0.4 Neut # (Auto) 8.0 H Lymph # (Auto) 2.3 [place] # (Auto) 0.7 Eos # (Auto) 0.1 Baso # (Auto) 0.0 Sodium 135 L Potassium 4.0 Chloride 101 Carbon Dioxide 24 Anion Gap 14.0 BUN 16 D Creatinine 1.08 Estimated Creat Clear 105 Estimated GFR 70 Est GFR ( Amer) 84 Glucose 215 H D POC Glucose 165 H Calcium 8.7 DS: Diagnosis - Discharge Diagnosis (1) Type 2 diabetes mellitus Status: Chronic (2) Hyperlipemia Status: Chronic (3) Essential (primary) hypertension Status: Chronic (4) History of tobacco abuse Status: Resolved (5) History of prostate cancer Status: Chronic (6) Acute inferolateral myocardial infarction Status: Acute (7) Coronary atherosclerosis of makah coronary artery Status: Chronic Discharge Plan - Patient Discharge Instructions ACTIVITY: Continue current activity, No heavy lifting DIET: cardiac Patient Instructions: High Triglycerides, Heart Attack, Type 2 Diabetes, Cardiac Catheterization, High Blood Pressure, Surgical Site Infection - Follow up Plan Follow up with: Vishnu Kohler MD [Staff Physician] - 1 week Chad Carney MD [Staff Physician] - 08/20/18 Disposition: Home, Self-[facility] Medications: Home Medications Medication Instructions Recorded Confirmed Type Metformin HCl [Metformin HCl ER] 500 mg PO BID 08/14/18 08/14/18 History Prescriptions/Medication Reconciliation: New Aspirin [Aspirin 81mg EC Tab] 81 mg PO DAILY 30 Days #30 tablet. Atorvastatin Calcium [Lipitor 40mg Tablet] 40 mg PO HS #30 tablet Carvedilol [Coreg 6.25mg Tablet] 6.25 mg PO BID #60 tablet Nitroglycerin 0.4 mg SL Q5MINP PRN #25 tab.subl PRN Reason: chest pain Ticagrelor [Brilinta 90mg Tablet] 90 mg PO BID #60 tablet Irbesartan [Avapro 75mg tablet] 75 mg PO DAILY #30 tablet Continue Metformin HCl [Metformin HCl ER] 500 mg PO BID
== END 2018-08-16 10:26 | disposition home or self-care (01) ==
LOC: ER 15:49 → 2ND 16:16 → CATHLAB 16:16 → OBSVTOIN 16:29
PROVIDERS: ADMIT Internal Medicine Adolescent Medicine; ATTEND Internal Medicine Adolescent Medicine

== ENCOUNTER 2018-09-04 09:07 | Outpatient (RCR) | payer BC, SELFPAY | END 2018-10-25 13:44 | disposition home or self-care (01) | LOC: PT 09:07 | PROVIDERS: Visit Provider Nurse Practitioner Family | DX: Z98.61 Coronary angioplasty status (principal) | CPT/HCPCS: 93798 ==

== ENCOUNTER → 2018-11-06 10:25 | Outpatient (CLI) | payer BC, SELFPAY ==
[2018-11-06 11:50] LABS: Alanine Aminotransferase 28 U/L (12-78); Albumin Level 3.9 gm/dL (3.4-5.0); Alkaline Phosphatase 148 U/L (46-116); Aspartate Amino Transferase 11 U/L (15-37); Bilirubin,Direct 0.2 mg/dL (0.0-0.2); Bilirubin,Indirect 0.7 mg/dL (0.0-0.9); Bilirubin,Total 0.9 mg/dL (0.2-1.0); Chol/HDL Ratio 3.9 (1-3.5); Cholesterol 138 mg/dL (140-200); HDL Cholesterol 35 mg/dL (27-67); LDL Cholesterol 86 mg/dL (0-130); Total Protein,Serum 7.5 gm/dL (6.4-8.2); Triglycerides 83 mg/dL (30-200); VLDL Cholesterol 17 mg/dL (0-40)
== END ==
PROVIDERS: Visit Provider Nurse Practitioner Family
DX: E11.9 Type 2 diabetes mellitus without complications (principal); E78.00 Pure hypercholesterolemia, unspecified; I10 Essential (primary) hypertension; I25.10 Atherosclerotic heart disease of native coronary artery without angina pectoris
CPT/HCPCS: 36415; 80061; 80076

== ENCOUNTER → 2018-12-12 11:05 | Outpatient (CLI) | payer BC, SELFPAY ==
[2018-12-12 14:04] LABS: Alanine Aminotransferase 28 U/L (12-78); Albumin/Globulin Ratio 1.2 (1.1-1.8); Alkaline Phosphatase 135 U/L (46-116); Anion Gap 14.8 mEq/L (5-15); Aspartate Amino Transferase 16 U/L (15-37); Bilirubin,Total 0.9 mg/dL (0.2-1.0); Blood Urea Nitrogen 17 mg/dL (7-18); Calcium 9.4 mg/dL (8.5-10.1); Carbon Dioxide 28 mmol/L (21.0-32.0); Chloride 102 mmol/L (98-107); Creatinine,Serum 0.97 mg/dL (0.70-1.30); Estimated Glomerular Filt Rate 79 ml/min (>60); GFR (African American) 95 ML/MIN (>60); Globulin 3.4 gm/dl (1.3-3.2); Glucose 223 mg/dL (74-106); Potassium 4.8 mmoL/L (3.5-5.1); Sodium 140 mmol/L (136-145); Total Protein,Serum 7.4 gm/dL (6.4-8.2)
[2018-12-12 14:09] LABS: Hemoglobin A1C 7.8 % (0.0-7.0)
== END ==
PROVIDERS: PCP Internal Medicine Adolescent Medicine; Visit Provider Nurse Practitioner Family
DX: E11.40 Type 2 diabetes mellitus with diabetic neuropathy, unspecified (principal); Z79.84 Long term (current) use of oral hypoglycemic drugs
CPT/HCPCS: 36415; 80053; 83036

== ENCOUNTER 2019-07-02 11:59 | Outpatient (CLI) | payer BC, SELFPAY ==
[2019-07-02 12:20] VITALS: BP 143/66; PULSE 89; RESP 18; O2SAT 91
[2019-07-02 12:50] VITALS: BP 122/69; PULSE 92; RESP 18
[2019-07-02 13:20] VITALS: BP 107/52; PULSE 90; RESP 18
[2019-07-02 13:50] VITALS: BP 109/60; PULSE 92; RESP 18; O2SAT 90
== END 2019-07-02 14:30 | disposition home or self-care (01) ==
LOC: INF 12:01
PROVIDERS: PCP Nurse Practitioner Family; Visit Provider Nurse Practitioner Family
DX: T78.3XXA Angioneurotic edema, initial encounter (principal)
CPT/HCPCS: 96372

== ENCOUNTER → 2019-07-24 10:05 | Outpatient (CLI) | payer BC, SELFPAY ==
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
== END ==
PROVIDERS: PCP Internal Medicine Adolescent Medicine; Visit Provider Nurse Practitioner Family
DX: E11.9 Type 2 diabetes mellitus without complications (principal); E78.00 Pure hypercholesterolemia, unspecified; I10 Essential (primary) hypertension; I11.9 Hypertensive heart disease without heart failure; I21.19 ST elevation (STEMI) myocardial infarction involving other coronary artery of inferior wall; I25.118 Atherosclerotic heart disease of native coronary artery with other forms of angina pectoris; R06.09 Other forms of dyspnea; Z85.46 Personal history of malignant neoplasm of prostate; Z87.891 Personal history of nicotine dependence; Z95.1 Presence of aortocoronary bypass graft; Z79.84 Long term (current) use of oral hypoglycemic drugs
CPT/HCPCS: 71046

== ENCOUNTER 2019-07-31 09:49 | Outpatient (RCR) | payer BC, SELFPAY | END 2019-07-31 09:55 | disposition home or self-care (01) | LOC: PT 09:49 | PROVIDERS: Visit Provider Thoracic Surgery (Cardiothoracic Vascular Surgery) | DX: Z95.1 Presence of aortocoronary bypass graft (principal) | CPT/HCPCS: 93798 ==

== ENCOUNTER → 2019-10-09 08:18 | Outpatient (CLI) | payer BC, SELFPAY ==
--- NOTE | 2019-10-09 08:39 | XR_ITS ---
PROCEDURE: XR SHOULDER RT MIN 2V CLINICAL INDICATION: RT SHOULDER PAIN COMPARISON: No exams were available for comparison FINDINGS: There is no acute fracture dislocation or destructive lesion. Mild acromioclavicular and glenohumeral joint arthropathy is noted. IMPRESSION: No acute findings. Dictated by: Miguel A Uribe 10/09/2019 09:03 Electronically signed by Miguel A Uribe in [place] 10/09/2019 09:03
[2019-10-09 09:55] LABS: Basophils # 0.1 K/mm3 (0-0.2); Basophils % 0.5 % (0.1-2.0); Eosinophils # 0.1 K/mm3 (0.0-0.4); Eosinophils % 0.9 % (0.1-12.0); Hematocrit 47.4 % (42.0-52.0); Hemoglobin 15.5 g/dL (14.1-18.0); Lymphocytes # 1.7 K/mm3 (0.7-4.5); Lymphocytes % 17.1 % (10-50); Mean Corpuscular HGB Conc 32.7 g/dL (31.8-35.4); Mean Corpuscular Hemoglobin 29.2 pg (27.0-31.2); Mean Corpuscular Volume 89.2 fl (80-94); Mean Platelet Volume 7.9 fl (7.4-10.4); Monocytes # 0.4 K/mm3 (0.1-1.0); Monocytes % 4.4 % (1.7-9.3); Neutrophils # 7.5 K/mm3 (1.8-7.8); Platelet Count 261 K/mm3 (142-424); Red Blood Count 5.32 M/mm3 (4.60-6.20); White Blood Count 9.7 K/mm3 (4.8-10.8)
[2019-10-09 10:36] LABS: Hemoglobin A1C 7.6 % (0.0-7.0)
[2019-10-09 10:44] LABS: Alanine Aminotransferase 13 U/L (12-78); Albumin Level 3.7 gm/dL (3.4-5.0); Albumin/Globulin Ratio 1.1 (1.1-1.8); Alkaline Phosphatase 122 U/L (46-116); Anion Gap 13.9 mEq/L (5-15); Aspartate Amino Transferase 10 U/L (15-37); Bilirubin,Total 0.6 mg/dL (0.2-1.0); Blood Urea Nitrogen 21 mg/dL (7-18); Calcium 9.3 mg/dL (8.5-10.1); Carbon Dioxide 28 mmol/L (21.0-32.0); Chloride 104 mmol/L (98-107); Chol/HDL Ratio 5.7 (1-3.5); Cholesterol 218 mg/dL (140-200); Creatinine,Serum 0.93 mg/dL (0.70-1.30); Estimated Glomerular Filt Rate 82 ml/min (>60); GFR (African American) 100 ML/MIN (>60); Globulin 3.3 gm/dl (1.3-3.2); Glucose 182 mg/dL (74-106); HDL Cholesterol 38 mg/dL (27-67); LDL Cholesterol 159 mg/dL (0-130); Potassium 4.9 mmoL/L (3.5-5.1); Sodium 141 mmol/L (136-145); Triglycerides 107 mg/dL (30-200); VLDL Cholesterol 21 mg/dL (0-40)
== END ==
PROVIDERS: Visit Provider Internal Medicine Adolescent Medicine
DX: M25.511 Pain in right shoulder (principal); E78.5 Hyperlipidemia, unspecified; E11.9 Type 2 diabetes mellitus without complications; I10 Essential (primary) hypertension; Z79.84 Long term (current) use of oral hypoglycemic drugs
CPT/HCPCS: 36415; 73030; 80053; 80061; 83036; 85025

== ENCOUNTER → 2019-10-31 12:49 | Outpatient (CLI) | payer BC, SELFPAY ==
--- NOTE | 2019-10-31 12:53 | MR_ITS ---
PROCEDURE: MR SHOULDER RT WO CON CLINICAL INDICATION: RIGHT ANTERIOR SHOULDER PAIN Shoulder pain with limited range of motion COMPARISON: XR SHOULDER RT MIN 2V from 10/09/2019 TECHNIQUE: Routine multiplanar multi echo sequences are performed without gadolinium enhancement. FINDINGS: Prominent hypertrophic changes are present at the acromioclavicular joint with spurring superiorly and inferiorly with some impingement upon the musculotendinous junction of the supraspinatus tendon. No evidence of rotator cuff tear. Slight increased T2 signal of the supraspinatus tendon distally which may be due to mild tendinopathy/tendinosis. There are mild osteoarthritic changes of the glenohumeral joint. The bicipital tendon is in place. There is a small shoulder joint effusion. No obvious labral tear. Small amount of fluid is present in the bicipital tendon sheath IMPRESSION: 1. Acromioclavicular arthropathy with mild impingement upon the superior aspect of the musculotendinous junction of the supraspinatus with mild tendinopathy/tendinosis of the supraspinatus tendon. No evidence of rotator cuff tear. 2. Osteoarthritic changes of the glenohumeral joint with small shoulder joint effusion. 3. There is some fluid in the bicipital tendon sheath which may be seen with tenosynovitis Dictated by: Sabas Escamilla MD 11/02/2019 09:06 Electronically signed by Sabas Escamilla MD in [place] 11/02/2019 09:06
--- NOTE | 2019-10-31 12:53 | MR_ITS ---
PROCEDURE: MR SHOULDER LT WO CON CLINICAL INDICATION: ROTATOR CUFF ARTHROPATHY OF LEFT SHOULDER Shoulder pain with limited range of motion COMPARISON: No exams were available for comparison TECHNIQUE: Routine multiplanar multi echo sequences are performed without gadolinium enhancement. FINDINGS: Mildly prominent hypertrophic changes are present at the acromioclavicular junction. No significant subacromial stenosis. There is slight increased T2 signal with thickening of the supraspinatus tendon suggesting tendinopathy/tendinosis. No evidence of rotator cuff tear. The subscapularis, infraspinatus, and teres minor tendons are intact. Bicipital tendon is in place. No obvious labral tear. There are mild osteoarthritic changes of the glenohumeral joint. There is a 9 mm well-circumscribed cystic lesion involving the humeral head at the junction with the greater tuberosity consistent with a subarticular cyst. IMPRESSION: 1. No evidence of rotator cuff tear. 2. Osteoarthritic changes of the acromioclavicular joint and glenohumeral joint with tendinopathy/tendinosis of the supraspinatus tendon. Dictated by: Sabas Escamilla MD 11/02/2019 09:19 Electronically signed by Sabas Escamilla MD in [place] 11/02/2019 09:19
== END ==
PROVIDERS: PCP Internal Medicine Adolescent Medicine; Visit Provider Internal Medicine Adolescent Medicine
DX: M12.812 Other specific arthropathies, not elsewhere classified, left shoulder (principal); M25.511 Pain in right shoulder
CPT/HCPCS: 73221

== ENCOUNTER → 2020-03-16 10:06 | Outpatient (CLI) | payer BC, SELFPAY ==
[2020-03-16 10:50] LABS: Basophils % 0.1 % (0.1-2.0); Eosinophils % 0.1 % (0.1-12.0); Hematocrit 46.4 % (42.0-52.0); Hemoglobin 15.9 g/dL (14.1-18.0); Lymphocytes # 1.3 K/mm3 (0.7-4.5); Lymphocytes % 11.4 % (10-50); Mean Corpuscular HGB Conc 34.3 g/dL (31.8-35.4); Mean Corpuscular Hemoglobin 31.1 pg (27.0-31.2); Mean Corpuscular Volume 90.5 fl (80-94); Mean Platelet Volume 7.8 fl (7.4-10.4); Monocytes # 0.4 K/mm3 (0.1-1.0); Monocytes % 3.6 % (1.7-9.3); Neutrophils # 9.9 K/mm3 (1.8-7.8); Neutrophils % 84.7 % (37.0-80.0); Platelet Count 263 K/mm3 (142-424); Red Blood Count 5.12 M/mm3 (4.60-6.20); Red Cell Distribution Width 13.4 % (11.5-17.5); White Blood Count 11.7 K/mm3 (4.8-10.8)
[2020-03-16 11:12] LABS: Chloride 104 mmol/L (98-107); Potassium 5.3 mmoL/L (3.5-5.1); Sodium 137 mmol/L (136-145)
[2020-03-16 11:14] LABS: Alanine Aminotransferase 15 U/L (12-78); Alkaline Phosphatase 100 U/L (38-126); Aspartate Amino Transferase 18 U/L (17-59); Bilirubin,Total 0.7 mg/dl (0.2-1.3); Blood Urea Nitrogen 18 mg/dl (9-20); Estimated Glomerular Filt Rate 98 ml/min (>60); GFR (African American) 119 ML/MIN (>60)
[2020-03-16 11:15] LABS: Albumin Level 4.6 g/dl (3.5-5.0); Albumin/Globulin Ratio 1.4 (1.1-1.8); Anion Gap 13.3 mEq/L (5-15); Calcium 10.1 mg/dl (8.4-10.2); Carbon Dioxide 25 mmol/L (22.0-30.0); Chol/HDL Ratio 4.9 (1-3.5); Cholesterol 238 mg/dl (140-200); Globulin 3.2 g/dL (1.3-3.2); Glucose 179 mg/dl (74-100); HDL Cholesterol 49 mg/dl (40-60); Total Protein,Serum 7.8 g/dl (6.3-8.2); Triglycerides 99 mg/dl (30-150); VLDL Cholesterol 20 mg/dL (0-40)
[2020-03-16 11:26] LABS: Direct LDL Cholesterol 172.39 mg/dL (100-129)
[2020-03-16 13:17] LABS: Hemoglobin A1C 6.5 % (4.0-6.0)
== END ==
PROVIDERS: Visit Provider Internal Medicine Adolescent Medicine
DX: I10 Essential (primary) hypertension (principal); E78.5 Hyperlipidemia, unspecified; E11.9 Type 2 diabetes mellitus without complications; Z79.84 Long term (current) use of oral hypoglycemic drugs
CPT/HCPCS: 36415; 80053; 80061; 83036; 85025

== ENCOUNTER → 2020-07-26 07:50 | Outpatient (CLI) | payer BC, SELFPAY ==
--- NOTE | 2020-07-26 07:51 | CA_ITS ---
APPROVED REPORT Water Supply Engineer: Rahel Aviles RVT Laterality: Bilateral Study Quality: Good Indications: Cartoid stenosis Risk Factors Hypertension: Hyperlipidemia Doppler Spectral Velocity Analysis ECA (R) 165.70/19.20 cm/s ECA (L) 102.50/15.00 cm/s dICA (R) 93.00/23.50 cm/s dICA (L) 91.30/27.70 cm/s Erin (R) 101.60/25.70 cm/s Erin (L) 101.80/26.20 cm/s pICA (R) 74.90/15.00 cm/s pICA (L) 62.10/18.00 cm/s dCCA (R) 64.20/8.60 cm/s dCCA (L) 54.60/11.20 cm/s pCCA (R) 114.40/15.00 cm/s pCCA (L) 98.00/21.00 cm/s Vert (R) 37.20/10.30 cm/s Vert (L) 35.10/8.10 cm/s ICA/CCA 1.58 ICA/CCA 1.86 Findings Study suggests 20-49% stenosis (lower end of scale) of the right internal cartoid artery. Study suggests 20-49% stenosis (lower end of scale) of the left internal cartoid artery. Antegrade flow seen bilateral vertebral arteries. Conclusion Study suggests 20-49% stenosis (lower end of scale) of the right internal cartoid artery. Study suggests 20-49% stenosis (lower end of scale) of the left internal cartoid artery. Antegrade flow seen bilateral vertebral arteries. Electronically signed by : Sabas Escamilla MD 07/26/2020 16:00:34
== END ==
PROVIDERS: PCP Internal Medicine Adolescent Medicine; Visit Provider Nurse Practitioner Family
DX: I65.23 Occlusion and stenosis of bilateral carotid arteries (principal)
CPT/HCPCS: 93880

== ENCOUNTER → 2021-01-26 10:55 | Outpatient (CLI) | payer MEDICARE, SELFPAY ==
--- NOTE | 2021-01-26 10:56 | CA_ITS ---
APPROVED REPORT Certified Ophthalmic Surgical Assistant: Rahel Aviles RVT Laterality: Bilateral Study Quality: Good Indications: torrey Risk Factors Hypertension: Hyperlipidemia Diabetes Smoking Doppler Spectral Velocity Analysis ECA (R) 115.50/17.10 cm/s ECA (L) 85.30/17.20 cm/s dICA (R) 92.00/26.70 cm/s dICA (L) 119.00/30.70 cm/s Erin (R) 93.00/34.20 cm/s Erin (L) 86.00/24.70 cm/s pICA (R) 57.70/11.80 cm/s pICA (L) 55.40/18.00 cm/s dCCA (R) 56.70/10.70 cm/s dCCA (L) 62.90/15.00 cm/s pCCA (R) 80.20/16.00 cm/s pCCA (L) 85.30/14.20 cm/s Vert (R) 31.40/9.70 cm/s Vert (L) 77.80/17.20 cm/s ICA/CCA 1.64 ICA/CCA 1.89 Findings Study suggests 20-49% stenosis (lower end of scale) of the right internal cartoid artery. Study suggests 20-49% stenosis (lower end of scale) of the left internal cartoid artery. Antegrade flow seen bilateral vertebral arteries. Conclusion Study suggests 20-49% stenosis (lower end of scale) of the right internal cartoid artery. Study suggests 20-49% stenosis (lower end of scale) of the left internal cartoid artery. Antegrade flow seen bilateral vertebral arteries. Electronically signed by : Emily Zamora, 01/27/2021 16:52:38
== END ==
PROVIDERS: PCP Internal Medicine Adolescent Medicine; Visit Provider Urology
DX: E78.5 Hyperlipidemia, unspecified (principal); I10 Essential (primary) hypertension; I25.10 Atherosclerotic heart disease of native coronary artery without angina pectoris; I65.23 Occlusion and stenosis of bilateral carotid arteries
CPT/HCPCS: 93880

== ENCOUNTER → 2021-03-03 17:25 | Outpatient (CLI) | payer MEDICARE, SELFPAY ==
[2021-03-03 17:44] LABS: Basophils # 0.1 K/mm3 (0-0.2); Basophils % 0.6 % (0.1-2.0); Eosinophils # 0.1 K/mm3 (0.0-0.4); Eosinophils % 1.4 % (0.1-12.0); Hematocrit 44.3 % (42.0-52.0); Hemoglobin 15.2 g/dL (14.1-18.0); Lymphocytes # 1.9 K/mm3 (0.7-4.5); Lymphocytes % 22.3 % (10-50); Mean Corpuscular HGB Conc 34.3 g/dL (31.8-35.4); Mean Corpuscular Hemoglobin 30.4 pg (27.0-31.2); Mean Corpuscular Volume 88.7 fl (80-94); Mean Platelet Volume 8.5 fl (7.4-10.4); Monocytes # 0.4 K/mm3 (0.1-1.0); Monocytes % 4.9 % (1.7-9.3); Neutrophils # 6.1 K/mm3 (1.8-7.8); Neutrophils % 70.8 % (37.0-80.0); Platelet Count 241 K/mm3 (142-424); Red Blood Count 4.99 M/mm3 (4.60-6.20); Red Cell Distribution Width 13.5 % (11.5-17.5); White Blood Count 8.6 K/mm3 (4.8-10.8)
[2021-03-03 18:10] LABS: Chloride 105 mmol/L (98-107); Sodium 140 mmol/L (136-145)
[2021-03-03 18:11] LABS: Potassium 4.1 mmoL/L (3.5-5.1)
[2021-03-03 18:13] LABS: Alanine Aminotransferase 19 U/L (12-78); Albumin Level 4.6 g/dl (3.5-5.0); Albumin/Globulin Ratio 1.6 (1.1-1.8); Alkaline Phosphatase 101 U/L (38-126); Anion Gap 17.1 mEq/L (5-15); Aspartate Amino Transferase 24 U/L (17-59); Bilirubin,Total 1.1 mg/dl (0.2-1.3); Blood Urea Nitrogen 13 mg/dl (9-20); Carbon Dioxide 22 mmol/L (22.0-30.0); Cholesterol 228 mg/dl (140-200); Estimated Glomerular Filt Rate 75 ml/min (>60); GFR (African American) 91 ML/MIN (>60); Globulin 2.8 g/dL (1.3-3.2); Total Protein,Serum 7.4 g/dl (6.3-8.2); Triglycerides 163 mg/dl (30-150); VLDL Cholesterol 33 mg/dL (0-40)
[2021-03-03 18:14] LABS: Calcium 9.4 mg/dl (8.4-10.2); Glucose 186 mg/dl (74-100); HDL Cholesterol 38 mg/dl (40-60)
[2021-03-03 18:24] LABS: Direct LDL Cholesterol 152.76 mg/dL (100-129)
[2021-03-03 18:32] LABS: Hemoglobin A1C 6.5 % (4.0-6.0)
== END ==
PROVIDERS: Visit Provider Internal Medicine Adolescent Medicine
DX: I10 Essential (primary) hypertension (principal); E11.9 Type 2 diabetes mellitus without complications; Z79.84 Long term (current) use of oral hypoglycemic drugs
CPT/HCPCS: 80053; 80061; 83036; 85025

== ENCOUNTER → 2021-07-07 08:20 | Outpatient (CLI) | payer MEDICARE, SELFPAY ==
--- NOTE | 2021-07-07 08:25 | XR_ITS ---
PROCEDURE: XR CHEST 2V CLINICAL HISTORY: right side chest tenderness COMPARISON: CR CXR CHEST(2 VIEWS-NOT PORTABLE) from 06/03/2016 CR [id number] XR chest portable from 08/14/2018 CR XR CHEST 2V from 07/24/2019 FINDINGS: There has been a prior CABG. Coronary artery stents are present. Normal heart size. COPD changes. The lungs are clear without infiltrates, suspicious nodules, or pleural effusions. Bone plate along the lower cervical spine. IMPRESSION: No change with no acute finding Dictated by: Sabas Escamilla MD 07/07/2021 14:38 Sabas Escamilla MD in [facility] 07/07/2021 14:38
== END ==
PROVIDERS: PCP Internal Medicine Adolescent Medicine; Visit Provider Nurse Practitioner Family
DX: E11.9 Type 2 diabetes mellitus without complications (principal); E78.5 Hyperlipidemia, unspecified; I10 Essential (primary) hypertension; I25.10 Atherosclerotic heart disease of native coronary artery without angina pectoris; I25.2 Old myocardial infarction; I51.89 Other ill-defined heart diseases; I65.29 Occlusion and stenosis of unspecified carotid artery; R06.00 Dyspnea, unspecified; Z79.84 Long term (current) use of oral hypoglycemic drugs
CPT/HCPCS: 71046

== ENCOUNTER → 2021-07-26 07:20 | Outpatient (CLI) | payer MEDICARE, SELFPAY ==
--- NOTE | 2021-07-26 | CA_ITS ---
APPROVED REPORT Exam: Exercise Treadmill Technologist: Nina Potter Ht: 5 ft 11 in Wt: 208 lbs BSA: 2.14 m2 HR: 62 bpm BP: 143/83 mmHg Indications: Shortness of Breath, Pulmonary Nodule Medical History Medications: Metformin,,,,, Losartan,,,,, Carvedilol,,,,, CloPIdogrel,,,,, Nitroglycerin,,,,, Stress Test Details Test: Dejuan HR Resting HR: 75 bpm Max Heart Rate (APMHR): 157.963586 bpm Max HR Achieved: 109 bpm Target HR (85% APMHR): 133.724430 bpm % of APMHR: 69.43 Recovery HR: 65 bpm BP Resting BP: 143.0/83.0 mmHg Max BP: 166.0/78.0 mmHg Recovery BP: 147.0/74.0 mmHg ECG Resting ECG: Normal sinus rhythm, PVC's, LPFP Clinical Exercise duration: 06:46 min Highest Stage Achieved: Exercise capacity: 7.0 METs Stress ECG Conclusion Patient exercised 6:46 on Dejuan Protocol. Test stopped due to shortness of air. Symptoms: Dyspnea. No chest pain. Arrhythmias/Ectopy: Occasional PVC, 2 couplets, [address]-T Changes: 0.5 - 1mm of horizontal ST depression anterolaterally and inferiorly. Conclusion: Equivocal EKG changes. Blunted heart rate response on beta-caleb. Myoview images reported separately. Test Summary REST . . . . . . . Standing REST 03:02 0.0 0.0 75 . 143/ 83 . . Stage 1 01:00 10.0 1.7 85 . . . . Stage 1 . . . . . . . Shortness of Breath Stage 1 02:00 10.0 1.7 86 . . . . Stage 1 03:00 10.0 1.7 89 . 152/ 80 . . Stage 2 01:00 12.0 2.5 90 . . . . Stage 2 02:00 12.0 2.5 94 . 160/ 80 . . Stage 2 03:00 12.0 2.5 101 . 160/ 80 . . Stage 3 00:46 14.0 3.4 109 . . . Stop exercise at 06:46 RECOVERY 01:00 0.0 0.0 86 . 166/ 78 . . RECOVERY 02:00 0.0 0.0 70 . 166/ 78 . . RECOVERY 03:00 0.0 0.0 65 . 159/ 69 . . RECOVERY 04:00 0.0 0.0 64 . 159/ 69 . . RECOVERY 05:00 0.0 0.0 64 . 147/ 74 . . RECOVERY 05:18 0.0 0.0 65 . 147/ 74 . . Electronically signed by : Yinka Haynes MD 07/26/2021 20:26:19
--- NOTE | 2021-07-26 07:20 | NM_ITS ---
APPROVED REPORT Exam: Nuclear Stress Test Indication: SOB, CAD, CABG, HTN, DM, High cholesterol Patient Location: Outpatient Stress Tech: Nina Potter [place] Tech:Cheryl Laureano, ARRT, RT (R)(N) Ht: 6 ft 0 in Wt: 210 lbs HR: 75 bpm BP: 143/83 mmHg BSA: 2.18 m2 History: SOB, CAD, CABG, HTN, DM, High cholesterol Procedure: Patient exercised on Dejuan protocol 6:46 minutes and sec, resting heart rate 75 bpm, resting blood pressure 143/83 mmHg, with exercise maximum heart rate achived was 109 bpm which is 69 % of the maximum predicted heart rate and blood pressure was 166/78 mmHg. Test was stopped due to SOB. Patient denied any complaint of chest pain. Patient has adequate exercise capacity, achieved 7.0 METs of workload on treadmill, the blood pressure response to exercise was Adequate. Electrocardiogram Resting electrocardiogram shows sinus rhythm, with exercise there is less than 1.[address] segment depression noted from the baseline EKG. The EKG portion of the exercise Myoview was nondiagnostic as patient did not achieve the target heart rate. Cardiac Stress and Resting SPECT Images: Cardiac Stress and Resting SPECT images were obtained using technetium 99m Myoview 30.4 mCi stress and 10.61 mCi at rest. Gated SPECT for analysis of segmental wall motion and calculation of the ejection fraction also done. Cardiac stress and resting SPECT images show fixed defect involving the inferior apical apical and anterolateral wall consistent with area of myocardial scarring without significant michelle-infarct ischemia. Computer derived ejection fraction is 43% with marked hypokinesis involving the anterolateral and inferior apical wall, right ventricle is mildly enlarged with normal contractility. Conclusion: 1. The EKG portion of the exercise Myoview was nondiagnostic as patient did not achieve the target heart rate, patient has adequate exercise capacity achieved 7 METS of workload on treadmill, the blood pressure response to exercise was adequate, there was no exercise-induced chest discomfort. 2. Scintigraphic evidence of myocardial scarring involving the inferior apical and anterolateral wall without significant michelle-infarct ischemia, computer derived ejection fraction is 43% with segmental wall motion abnormality described above, right ventricle is mildly enlarged with normal contractility. 3. Abnormal exercise Myoview study. Electronically signed by : Yinka Haynes MD 07/26/2021 20:43:54
--- NOTE | 2021-07-26 07:33 | CT_ITS ---
PROCEDURE: CT CHEST WO/W CON CLINCAL INDICATION: nodule on chest wall COMPARISON: No exams were available for comparison TECHNIQUE: IV Contrast: 75ml Isovue 370 Axial images obtained with sagittal and coronal reformats. All CT scans at the facility use one or more dose reduction, viz: automated exposure control, ma/kV adjustment per patient size (including targeted exams where dose is matched to indication, i.e. head), or iterative reconstruction technique. FINDINGS: HEART AND MEDIASTINAL STRUCTURES: Prior median sternotomy with CABG. Coronary artery stents are present in the LAD and circumflex and distal left main. Along the lower aspect of the sternum at the xiphoid region there is a small abdominal wall hernia containing fat. This measures approximately 1.9 x 2.2 cm. The sternotomy site has an unremarkable appearance. LUNGS AND PLEURAL SPACES: COPD changes with centrilobular emphysema. Dependent changes are present along the posterior inés thoraces bilaterally small pneumatocele is present in the left lower lobe posteriorly measuring 2 and 0.8 cm and 0.5 cm. BONY STRUCTURES: No acute bony abnormalities apparent. UPPER ABDOMEN: 2.8 cm right renal cyst ADDITIONAL FINDINGS: Gynecomastia IMPRESSION: There is a small ventral abdominal wall hernia in the subxiphoid region containing fat very slightly eccentric toward the left. COPD with centrilobular emphysema Dictated by: Sabas Escamilla MD 08/01/2021 09:21 Sabas Escamilla MD in [facility] 08/01/2021 09:21
[2021-07-26 08:46] LABS: Blood Urea Nitrogen 16 mg/dl (9-20); Estimated Glomerular Filt Rate 114 ml/min (>60); GFR (African American) 138 ML/MIN (>60)
--- NOTE | 2021-07-26 09:49 | HMH.ITSHM ---
Current Home Medications as stated by this patient Gonsalo Ryan or advertising representative. []NITRO METFORMIN LOSARTAN CLOPIDOGREL CARVEDILOL
--- NOTE | 2021-07-26 09:50 | CA_ITS ---
APPROVED REPORT EXAM: Comprehensive 2D, Doppler, and color-flow Echocardiogram Layer Off: Georgette Valdez CRT Ht: 5 ft 11 in Wt: 208lbs BSA: 2.14 BP: 137/78 mmHg Indications: Murmur, Shortness of Breath, Diabetes, Hyperlipidemia, Hypertension/HDD, old AK, stents, CABG 2D Dimensions LVOT 2.08 cm (M/F) 1.5-2.5 LA Volume 21.00 mL LA Volume Index 9.80 mL/m2 (M/F) 16-34 M-Mode Dimensions RVDd 3.23 cm (0.9-2.6) LA Diam 4.31 cm (1.9-4.0) LVDd 5.78 cm (3.5-5.7) Ao Diam 4.10 cm (2.0-3.7) LVDs 4.63 cm (3.5-5.7) IVSd 1.22 cm (0.6-1.1) PWd 1.11 cm (0.6-1.1) EF (Teich) 40.20% FS 19.90% EDV (Teich) 165.20 mL ESV (Teich) 98.80 mL LV Diastology E Decel Time 230.00 (160-240 msec) E/A Ratio 0.90 MED E' 6.30 (< 7 cm/sec) MED A' 11.10 cm/s E'/MED E' Ratio 9.71 (>14) LAT E' 11.00 (<10 cm/sec) LAT A' 11.40 cm/s E/LAT E' Ratio 5.56 (>14) Aortic Valve AO Peak GR. 6.60 mmHg Mitral Valve MV A Velocity 68.00 (40-130 cm/s) E/A Ratio 0.90 MV Decel. Time 230.00 (160-240 ms) Pulmonary Valve PV Peak Velocity 186.00 (50-150 cm/s) Tricuspid Valve TR P. Velocity 239.00 cm/s RAP Estimate 10.00 mmHg RVSP 32.90 mmHg Left Ventricle Left atrium is mildly enlarged, left ventricle is normal size, mild concentric left ventricular hypertrophy, visually estimated ejection fraction 50%, there is moderate hypokinesis involving the distal septum and apical wall. Grade 1 diastolic dysfunction seen without tissue Doppler evidence of raise left atrial pressure. Right Ventricle Right atrium right ventricle mildly enlarged with normal contractility. Aortic Valve Aortic valve is thickened and calcified without aortic stenosis or aortic insufficiency. Mitral Valve Mitral valve is minimally thickened, there is mild mitral regurgitation Tricuspid Valve Tricuspid valve grossly normal, there is mild tricuspid regurgitation, calculated right ventricular systolic pressure 32 mmHg. Pulmonic Valve Pulmonic valve is poorly visualized. Great Vessels Aortic root is normal size. Inferior vena cava is poorly visualized. Pericardium No significant pericardial effusion noted. Conclusion 1. Mild biatrial enlargement, normal left ventricular size, mild concentric left ventricular hypertrophy, visually estimated ejection fraction 50% with segmental wall motion abnormality described above, grade 1 diastolic dysfunction seen without tissue Doppler evidence of raise left atrial pressure. 2. Right ventricle with normal contractility. 3. Mild mitral and tricuspid regurgitation, calculated right ventricular systolic pressure 32 mmHg . 4. No significant pericardial effusion noted. Electronically signed by : Yinka Haynes MD 07/26/2021 19:47:03
== END ==
PROVIDERS: PCP Internal Medicine Adolescent Medicine; Visit Provider Nurse Practitioner Family
DX: E11.9 Type 2 diabetes mellitus without complications (principal); E78.5 Hyperlipidemia, unspecified; I10 Essential (primary) hypertension; I25.10 Atherosclerotic heart disease of native coronary artery without angina pectoris; I25.2 Old myocardial infarction; I65.29 Occlusion and stenosis of unspecified carotid artery; R06.00 Dyspnea, unspecified; R22.2 Localized swelling, mass and lump, trunk; Z79.84 Long term (current) use of oral hypoglycemic drugs
CPT/HCPCS: 36415; 71270; 78452; 82565; 84520; 93017; 93306; A9502; Q9967

== ENCOUNTER 2021-08-01 08:22 | Day surgery (SDC) | payer MEDICARE, SELFPAY ==
[2021-08-01] VITALS (20 sets, daily range): BP systolic 122–164; BP diastolic 72–89; PULSE 54–80; RESP 16–20; TEMP 36.8–37.4; O2SAT 90–97; BMI 29.0; BMI 29.2
--- NOTE | 2021-08-01 | CA_ITS ---
APPROVED REPORT Structural Steel Painter: Georgette Valdez, NAHID Surgery/Intervention S/P cath and 3 stents Findings Right groin negative for pseudoaneurysm. Normal arterial blood flow in the common femoral artery of the right lower extremity. Conclusion Right groin negative for pseudoaneurysm. Normal arterial blood flow in the common femoral artery of the right lower extremity Electronically signed by : Sabas Escamilla MD 08/03/2021 19:48:21
--- NOTE | 2021-08-01 07:06 | IR_ITS ---
APPROVED REPORT Patient Location: Outpatient PROCEDURES Left heart catheterization Left ventriculogram Selective coronary angiogram Selective engage left internal mammary to the LAD Drug-eluting stent deployment to the posterior descending artery Drug-eluting stent deployment to the ostial proximal dominant right coronary INDICATION Coronary artery disease, History of coronary bypass surgery, Abnormal Myoview, Angina pectoris, , Informed consent was obtained prior to the procedure. COMPLICATIONS NONE Estimated Blood Loss: LES THAN 10 ML TECHNIQUE One percent lidocaine used to anesthetize the right groin. The right femoral artery was accessed via the Seldinger technique and a 5 [place] sheath was placed in the right femoral artery. A JL 4, JR4 catheter were used to perform left heart catheterization, left ventriculogram selective coronary angiography as well as selective engagement of the left internal mammary artery. At the end the diagnostic angiogram therapeutic heparin was administered giving a therapeutic ACT and the 5 [place] sheath was exchanged for a 6 [place] sheath. A JR4 guide catheter was placed in the right coronary artery and a Choice PT extra-support wire was placed in the posterior descending artery. A 2.25 x 15 mm resolute Jasper stent was deployed in the posterior descending artery at 24 mónica reducing the critical stenosis to 0%. LISE-3 flow was present before and after the procedure. Each time the catheter cannulated the ostium of the right coronary there was ST elevation and severe dampening. Because of this a 3.5 x 15 mm resolute Horacio stent was placed in the proximal dominant right coronary at 20 mónica. The ostium was not adequately covered therefore an additional 3.5 x 12 mm resolute Jasper stent was deployed at 24 mónica in the ostium of the right coronary reducing the stenosis to 0%. LISE-3 flow was present before and after the procedure. After achieving excellent angiographic results the apparatus was removed the groin was reprepped closure changed sheath was removed attempted hemostasis was unsuccessful with a Perclose device therefore the device was removed and the 6 [place] sheath was upsized to a 7 [place] sheath. There was small degree of extravasation therefore it was felt that she should come out and a FemoStop device placed. The FemoStop device was successfully placed with excellent hemostasis. Patient was transferred the postop already in stable condition ANGIOGRAPHIC RESULTS The left main artery Has a smooth 20% stenosis The left anterior descending artery Ostially occluded The circumflex artery Is nondominant and has a mid vessel concentric 70% stenosis followed by a 50% followed by additional 40% stenoses. Distally there is a stent in the circumflex artery which is occluded. The right coronary artery Is a dominant vessel and has an ostial 50% stenosis by angiography however anatomically this appeared to be much worse as described above. There are additional 30% distal stenoses followed by an 80% stenosis which extends into a large posterior descending artery which then has a 90% stenosis. The posterior lateral branch has an ostial 80% stenosis The CARTY ventriculogram reveals Dilated ventricle ejection fraction 45% with mild inferior wall hypokinesis and anterior wall hypokinesis The left ventricular end-diastolic pressure 10 mmHg Left internal mammary is widely patent IMPRESSION Coronary artery disease as described above Dilated ventricle with regional wall motion abnormalities Normal LVEDP Patent PINEDA to the left internal mammary artery Severe disease in the right coronary/posterior descending artery as described above successful percutaneous revascularization
[2021-08-01 09:25] LABS: Basophils # 0.1 K/mm3 (0-0.2); Basophils % 0.9 % (0.1-2.0); Eosinophils # 0.1 K/mm3 (0.0-0.4); Eosinophils % 0.6 % (0.1-12.0); Hematocrit 47.9 % (42.0-52.0); Hemoglobin 16.6 g/dL (14.1-18.0); Lymphocytes # 1.8 K/mm3 (0.7-4.5); Lymphocytes % 21.2 % (10-50); Mean Corpuscular HGB Conc 34.6 g/dL (31.8-35.4); Mean Corpuscular Hemoglobin 31.3 pg (27.0-31.2); Mean Corpuscular Volume 90.3 fl (80-94); Mean Platelet Volume 8.4 fl (7.4-10.4); Monocytes # 0.4 K/mm3 (0.1-1.0); Monocytes % 5.3 % (1.7-9.3); Neutrophils % 72.1 % (37.0-80.0); Platelet Count 266 K/mm3 (142-424); Red Blood Count 5.31 M/mm3 (4.60-6.20); Red Cell Distribution Width 14.1 % (11.5-17.5); White Blood Count 8.3 K/mm3 (4.8-10.8)
[2021-08-01 09:26] LABS: Coronavirus 19, PCR Not Detected (NotDetected); Influenza A, PCR Not Detected (NotDetected); Influenza B, PCR Not Detected (NotDetected)
[2021-08-01 09:42] LABS: Chloride 102 mmol/L (98-107); Potassium 4.2 mmoL/L (3.5-5.1); Sodium 138 mmol/L (136-145)
[2021-08-01 09:45] LABS: Anion Gap 11.2 mEq/L (5-15); Blood Urea Nitrogen 15 mg/dl (9-20); Calcium 9.1 mg/dl (8.4-10.2); Carbon Dioxide 29 mmol/L (22.0-30.0); Creatinine Clearance Estimated 101 mL/min (50-200); Estimated Glomerular Filt Rate 98 ml/min (>60); GFR (African American) 118 ML/MIN (>60); Glucose 262 mg/dl (74-100)
[2021-08-01 13:29] LABS: CATHL Activated Clotting Time 323 SEC (74-125)
--- NOTE | 2021-08-01 15:27 | HMH.PHACLD ---
Gonsalo Ryan has received discharge medication counseling on the following medications: PATIENT IS CURRENTLY TAKING PLAVIX 75 MG DAILY, CARVEDILOL 12.5 MG BID, AND LOSARTAN 25 MG DAILY. MD RESTARTING PATIENT ON ASPIRIN 81 MG DAILY. PATIENT HAS MUSCLE PAIN WITH STATINS SO THESE WERE NOT STARTED.
--- NOTE | 2021-08-01 20:22 | PC.NURSE ---
Pt alert and oriented. Prn tylenol per nov. VSS. Scant bleeding to groin cath site.Have encouraged pt to continue to lie flat at this time. Site is soft, and bruising noted. Pressure held, and sand bag applied. Bedside report given to Santino Phillpis RN.
[2021-08-02] VITALS: BP 134/78; PULSE 60; PULSE 66; RESP 18; TEMP 37.1; O2SAT 94
--- NOTE | 2021-08-02 03:03 | PC.NURSE ---
Pt is currently resting in bed. DSG to cath site was changed due to saturated DSG. Scant blood unchanged to (R) femoral site. VSS. Pt has denied any discomfort. Urine output thus far 750 ml. No other concerns. Will continue to monitor.
[2021-08-02 04:00] VITALS: BP 131/68; PULSE 64; PULSE 80; RESP 18; TEMP 37.1; O2SAT 93
[2021-08-02 06:53] LABS: Basophils # 0.1 K/mm3 (0-0.2); Basophils % 0.5 % (0.1-2.0); Eosinophils % 0.4 % (0.1-12.0); Hematocrit 45.3 % (42.0-52.0); Hemoglobin 15.7 g/dL (14.1-18.0); Lymphocytes # 1.9 K/mm3 (0.7-4.5); Lymphocytes % 19.1 % (10-50); Mean Corpuscular HGB Conc 34.8 g/dL (31.8-35.4); Mean Corpuscular Hemoglobin 31.3 pg (27.0-31.2); Mean Corpuscular Volume 90.1 fl (80-94); Mean Platelet Volume 8.2 fl (7.4-10.4); Monocytes # 0.6 K/mm3 (0.1-1.0); Monocytes % 5.7 % (1.7-9.3); Neutrophils # 7.2 K/mm3 (1.8-7.8); Neutrophils % 74.3 % (37.0-80.0); Platelet Count 229 K/mm3 (142-424); Red Blood Count 5.02 M/mm3 (4.60-6.20); White Blood Count 9.7 K/mm3 (4.8-10.8)
[2021-08-02 07:08] LABS: Anion Gap 10.6 mEq/L (5-15); Blood Urea Nitrogen 12 mg/dl (9-20); Calcium 8.8 mg/dl (8.4-10.2); Carbon Dioxide 28 mmol/L (22.0-30.0); Chloride 102 mmol/L (98-107); Creatinine Clearance Estimated 102 mL/min (50-200); Estimated Glomerular Filt Rate 114 ml/min (>60); GFR (African American) 138 ML/MIN (>60); Glucose 196 mg/dl (74-100); Potassium 4.6 mmoL/L (3.5-5.1); Sodium 136 mmol/L (136-145)
--- NOTE | 2021-08-02 09:07 | SUR.PHASEII ---
DISCHARGE INSTRUCTIONS DONE, PATEINT AND SPOUSE BOTH STATED UNDERSTANDING. SITE CLEANED AND DRESSED IN STERILE FASHION.
== END 2021-08-02 08:30 | disposition home or self-care (01) ==
LOC: CATHLAB 08:23 → 2ND 15:41
PROVIDERS: PCP Internal Medicine Adolescent Medicine; Visit Provider Internal Medicine
DX: E11.9 Type 2 diabetes mellitus without complications (principal); E78.00 Pure hypercholesterolemia, unspecified; I10 Essential (primary) hypertension; I11.9 Hypertensive heart disease without heart failure; I21.19 ST elevation (STEMI) myocardial infarction involving other coronary artery of inferior wall; I25.118 Atherosclerotic heart disease of native coronary artery with other forms of angina pectoris; R06.09 Other forms of dyspnea; Z85.46 Personal history of malignant neoplasm of prostate; Z87.891 Personal history of nicotine dependence; Z95.1 Presence of aortocoronary bypass graft; Z79.84 Long term (current) use of oral hypoglycemic drugs; I48.91 Unspecified atrial fibrillation; I25.10 Atherosclerotic heart disease of native coronary artery without angina pectoris; Z95.5 Presence of coronary angioplasty implant and graft; Z88.8 Allergy status to other drugs, medicaments and biological substances; Z20.822 Contact with and (suspected) exposure to COVID-19; R07.9 Chest pain, unspecified; R09.89 Other specified symptoms and signs involving the circulatory and respiratory systems
CPT/HCPCS: 36415; 80048; 85025; 85347; 92937; 92938; 93459; 93926; 99152; 99153; C1725; C1760; C1769; C1874; C1876; C1894; C9604; C9605; C9803; J1644; J2720; Q9967; U0003; U0005

== ENCOUNTER → 2021-08-08 12:10 | Outpatient (CLI) | payer MEDICARE, SELFPAY | PROVIDERS: Visit Provider Internal Medicine | DX: I25.10 Atherosclerotic heart disease of native coronary artery without angina pectoris (principal) | CPT/HCPCS: 36415; 80048; 85025 ==

== ENCOUNTER → 2021-08-08 14:42 | Outpatient (CLI) | payer MEDICARE, SELFPAY ==
[2021-08-08 12:54] LABS: Basophils # 0.1 K/mm3 (0-0.2); Eosinophils # 0.1 K/mm3 (0.0-0.4); Eosinophils % 1.1 % (0.1-12.0); Hematocrit 47.3 % (42.0-52.0); Hemoglobin 15.8 g/dL (14.1-18.0); Lymphocytes # 1.4 K/mm3 (0.7-4.5); Lymphocytes % 17.3 % (10-50); Mean Corpuscular HGB Conc 33.5 g/dL (31.8-35.4); Mean Corpuscular Hemoglobin 30.8 pg (27.0-31.2); Mean Corpuscular Volume 91.9 fl (80-94); Mean Platelet Volume 8.4 fl (7.4-10.4); Monocytes # 0.5 K/mm3 (0.1-1.0); Monocytes % 5.8 % (1.7-9.3); Neutrophils # 6.1 K/mm3 (1.8-7.8); Neutrophils % 74.9 % (37.0-80.0); Platelet Count 252 K/mm3 (142-424); Red Blood Count 5.15 M/mm3 (4.60-6.20); Red Cell Distribution Width 14.3 % (11.5-17.5); White Blood Count 8.2 K/mm3 (4.8-10.8)
[2021-08-08 13:27] LABS: Chloride 102 mmol/L (98-107); Sodium 139 mmol/L (136-145)
[2021-08-08 13:30] LABS: Blood Urea Nitrogen 16 mg/dl (9-20); Estimated Glomerular Filt Rate 98 ml/min (>60); GFR (African American) 118 ML/MIN (>60)
[2021-08-08 13:31] LABS: Calcium 9.4 mg/dl (8.4-10.2); Carbon Dioxide 30 mmol/L (22.0-30.0); Glucose 184 mg/dl (74-100)
--- NOTE | 2021-08-08 14:44 | CA_ITS ---
APPROVED REPORT Bankruptcy Assistant: Feli Wilburn RT(R) Indications CAD Moderate sized knot/hematoma noted in right groin with extensive bruisinng since 08/06/21. Heart cath done 08/01/21. Risk Factors Hypertension CAD Hyperlipidemia Cardiac Disease Diabetes Current Smoker hx CABG Findings Groin: Right Negative Findings No evidence of pseudoaneurysm, hematoma, or AV fistula of the right groin. Conclusion No evidence of pseudoaneurysm, hematoma, or AV fistula of the right groin. Electronically signed by : Sabas Escamilla MD 08/09/2021 11:45:05
== END ==
PROVIDERS: Internal Medicine; PCP Internal Medicine Adolescent Medicine; Visit Provider Nurse Practitioner Family
DX: I77.0 Arteriovenous fistula, acquired (principal)
CPT/HCPCS: 36415; 80048; 85025; 93926

== ENCOUNTER → 2021-08-15 07:54 | Outpatient (CLI) | payer MEDICARE, SELFPAY ==
[2021-08-15 08:50] VITALS: PULSE 65; PULSE 67
== END ==
PROVIDERS: PCP Internal Medicine Adolescent Medicine; Visit Provider Nurse Practitioner Family
DX: R06.09 Other forms of dyspnea (principal)
CPT/HCPCS: 94060; 94640; 94726; 94729

== ENCOUNTER 2021-09-16 10:38 | Emergency (ER) | payer MEDICARE, SELFPAY ==
[2021-09-16 11:30] VITALS: BP 107/64; PULSE 78; RESP 21; TEMP 37.1; O2SAT 96; BMI 27.8
--- NOTE | 2021-09-16 12:00 | HMH.EDUTC ---
[facility] [place] Clinical Impression: Exposure to COVID-19 virus Disposition: Home, Self-Care Condition on Discharge: Good Instructions: DI for COVID-19 (Suspected or Confirmed ), Preventing the Spread of Coronavirus Discharge Instructions Additional Instructions: Drink plenty of fluids. Take tylenol or ibuprofen for pain or fever. Follow up with your regular doctor. GO TO THE ER FOR ANY WORSENING SYMPTOMS Quarantine until you know the results of your covid-19 test. If it is positive, the health department should call you and give you further instructions about your length of Quarantine and other things. Notify your school or workplace of your results and follow their instructions regarding return to work/school. Referrals: Jimmy Echols MD [Primary Care Provider] - Time of Disposition: 12:06 Medical Decision Making - Medical Records Medical records reviewed: No: I reviewed the patient's medical records. - Klaus Inquiry Pt receiving controlled substance: No Vital Signs: 09/16/21 11:30 09/16/21 12:20 Temperature 98.7 F 98.7 F Temperature Source Oral Pulse Rate 78 Pulse Rate [Right Brachial] 78 Respiratory Rate 21 21 Blood Pressure 107/64 L Blood Pressure [Right Arm] 107/64 L Blood Pressure Mean [Right Arm] 78 Blood Pressure Source [Right Arm] Automatic Cuff Blood Pressure Position [Right Arm] Sitting 02 Sat by Pulse Oximetry 96 Oxygen Delivery Method Room Air Orders (Tests/Meds): ORDERS Category Date Time Status Covid-19 Nasal PCR ([facility]) Routine Lab 09/16/21 12:22 Received [facility] [place] HPI - General Stated complaint: sore throat, weakness/ body aches, h/a Time Seen by Provider: 09/16/21 12:00 Mode of Arrival: Ambulatory Source of Information: Patient Limitations: No Limitations Description of Symptoms (Recalled from Triage Doc. by RN): PATIENT C/O FEVER, CHILLS, AND BODY ACHES SINCE YESTERDAY HEENT Symptoms (Recalled from RN notes): No Resp Symptoms (Recalled from RN notes): No Skin Symptoms (Recalled from RN notes): No MS Symptoms (Recalled from RN notes): No Functional Status (Recalled from RN notes): WNL - History of Present Illness Provider Complaint: He states that yesterday he started chilling and having body aches. He felt pretty achy and bad all night last night. When he woke up this morning he has felt better, but he would like to be tested for influenza and covid-19. He has been fully vacccinated for covid-19, but he has not had a flu shot. He denies any shortness of breath, chest congestion or chest pain. - Related Data Home Medications Medication Instructions Recorded Confirmed metformin 500 mg tablet,extended 1,000 mg PO BID tab 01/23/19 09/16/21 release 24 hr losartan 25 mg tablet 12.5 mg PO DAILY tab 01/10/21 09/16/21 Previous Rx's Medication Instructions Recorded carvedilol 12.5 mg tablet 12.5 mg PO BID #180 tab 11/24/20 clopidogrel 75 mg tablet 75 mg PO DAILY #90 tab 11/24/20 Allergies Allergy/AdvReac Type Severity Reaction Status Date / Time meloxicam [From MOBIC] Allergy Unknown Verified 08/08/21 14:07 atorvastatin [From Lipitor] AdvReac Severe Muscle Pain Verified 08/08/21 14:07 ticagrelor [From Brilinta] AdvReac Intermediate dyspnea Verified 08/08/21 14:07 - Worker's Comp Is this a Worker's Comp case?: No [facility] History - Hepatitis A Screen Drug use history?: No High risk sexual behaviors?: No History of sexually transmitted infection?: No Currently employed?: No Childcare worker?: No Do you have indoor plumbing?: Yes Do you have electricity?: Yes Attestation statement:: This patient has been screened for Hepatitis A risk factors. I have reviewed the patient's past medical history: Yes Medical History: Reports:: Arrhythmia, Atrial Fibrillation, Cancer, Coronary Artery Disease, Diabetes Mellitus Type 1, Diabetes Mellitus Type 2, Heart Murmur, Hyperlipidemia, Hypertension, Myocardial Infarction Denies:: Int
[2021-09-16 12:20] VITALS: BP 107/64; PULSE 78; RESP 21; TEMP 37.1; O2SAT 96
== END 2021-09-16 12:34 | disposition home or self-care (01) ==
PROVIDERS: Emergency Provider Nurse Practitioner Family; PCP Internal Medicine Adolescent Medicine
DX: U07.1 COVID-19 (principal); I48.91 Unspecified atrial fibrillation; I25.10 Atherosclerotic heart disease of native coronary artery without angina pectoris; I10 Essential (primary) hypertension; E78.5 Hyperlipidemia, unspecified; I25.2 Old myocardial infarction; E11.9 Type 2 diabetes mellitus without complications; Z87.891 Personal history of nicotine dependence; Z79.899 Other long term (current) drug therapy
CPT/HCPCS: G0463; 99202; C9803; U0003; U0005

== ENCOUNTER → 2022-10-04 09:58 | Outpatient (CLI) | payer MEDICARE, SELFPAY ==
--- NOTE | 2022-10-04 10:01 | CA_ITS ---
FINAL REPORT TECHNIQUE: Real-time imaging was performed of the extracranial carotid arteries in transverse and longitudinal planes, with color duplex evaluation of blood flow velocity. Spectral analysis was performed. The cervical vertebral arteries were also examined. CLINICAL HISTORY: EDIL, hx CABG, CAD, SOB, HTN, ex smoker, last carotid ultrasound 01/2021 VERONIQUE 20-49% stenosis, LICA 20-49% stenosis. COMPARISON: 01/26/2021 FINDINGS: NASCET technique is utilized for stenosis evaluation. Right carotid system (centimeters/second): CCA: 122 ICA: 463 Vertebral artery: Antegrade ICA/CCA ratio: 9.42 Moderate plaque is identified at the bifurcation. Left carotid system (centimeters/second): CCA: 144 ICA: 119 Vertebral artery: Antegrade ICA/CCA ratio: 2.50 Mild plaque is identified at the bifurcation. IMPRESSION: 70-99 % right ICA stenosis. <50% left ICA stenosis. Consider CTA for further evaluation. Reviewed, Interpreted and Dictated by Daria Pope MD Transcribed by Gemma Estrella Authenticated and [facility]
== END ==
PROVIDERS: PCP Internal Medicine Adolescent Medicine; Visit Provider Nurse Practitioner Family
DX: I65.23 Occlusion and stenosis of bilateral carotid arteries (principal)
CPT/HCPCS: 93880

== ENCOUNTER → 2022-10-13 09:10 | Outpatient (CLI) | payer MEDICARE, SELFPAY ==
--- NOTE | 2022-10-13 09:34 | CT_ITS ---
FINAL REPORT CLINICAL HISTORY: Carotid artery stenosis FINDINGS: CTA NECK Thin section axial CT with contrast with multiplanar reconstruction NASCET criteria and technique was utilized during interpretation. Low-dose technique was utilized. Aortic arch: Arch shows no significant narrowing. Great vessel origins are widely patent . Right carotid: There is moderate soft plaque disease with moderate stenosis of the proximal right ICA of 50-60%. Left carotid: Minimal plaque disease with 20% or less stenosis. Vertebrals: Vertebral arteries are codominant.. No significant stenosis is present . IMPRESSION: Moderate proximal right ICA stenosis. Left carotid bifurcation widely patent. Reviewed, Interpreted and Dictated by Mp Azar MD Transcribed by Amelia Shi Authenticated and [facility]
[2022-10-13 10:02] LABS: Blood Urea Nitrogen 11 mg/dl (9-20); Estimated Glomerular Filt Rate 85 ml/min (>60); GFR (African American) 102 ML/MIN (>60)
== END ==
PROVIDERS: PCP Internal Medicine Adolescent Medicine; Visit Provider Nurse Practitioner Family
DX: I65.23 Occlusion and stenosis of bilateral carotid arteries (principal)
CPT/HCPCS: 36415; 70498; 82565; 84520; Q9967

== ENCOUNTER → 2023-04-12 09:00 | Outpatient (CLI) | payer MEDICARE, SELFPAY ==
[2023-04-12 09:55] LABS: Hemoglobin A1C 6.5 % (4.0-6.0)
[2023-04-12 10:03] LABS: Basophils % 0.6 % (0.1-2.0); Eosinophils # 0.1 K/mm3 (0.0-0.4); Hematocrit 44.2 % (42.0-52.0); Hemoglobin 14.7 g/dL (14.1-18.0); Lymphocytes # 1.6 K/mm3 (0.7-4.5); Lymphocytes % 23.2 % (10-50); Mean Corpuscular HGB Conc 33.2 g/dL (31.8-35.4); Mean Corpuscular Hemoglobin 29.9 pg (27.0-31.2); Mean Corpuscular Volume 89.9 fl (80-94); Mean Platelet Volume 8.2 fl (7.4-10.4); Monocytes # 0.4 K/mm3 (0.1-1.0); Monocytes % 6.4 % (1.7-9.3); Neutrophils # 4.6 K/mm3 (1.8-7.8); Neutrophils % 67.8 % (37.0-80.0); Platelet Count 202 K/mm3 (142-424); Red Blood Count 4.92 M/mm3 (4.60-6.20); Red Cell Distribution Width 13.7 % (11.5-17.5); White Blood Count 6.8 K/mm3 (4.8-10.8)
[2023-04-12 10:12] LABS: Alanine Aminotransferase 16 U/L (12-78); Albumin Level 4.3 g/dl (3.5-5.0); Albumin/Globulin Ratio 1.7 (1.1-1.8); Alkaline Phosphatase 97 U/L (38-126); Anion Gap 12.7 mEq/L (5-15); Aspartate Amino Transferase 21 U/L (17-59); Bilirubin,Total 0.9 mg/dl (0.2-1.3); Blood Urea Nitrogen 16 mg/dl (9-20); Carbon Dioxide 26 mmol/L (22.0-30.0); Chloride 106 mmol/L (98-107); Chol/HDL Ratio 4.4 (1-3.5); Cholesterol 149 mg/dl (140-200); Estimated Glomerular Filt Rate 85 ml/min (>60); GFR (African American) 102 ML/MIN (>60); Globulin 2.6 g/dL (1.3-3.2); Glucose 149 mg/dl (74-100); HDL Cholesterol 34 mg/dl (40-60); Potassium 4.7 mmoL/L (3.5-5.1); Sodium 140 mmol/L (136-145); Total Protein,Serum 6.9 g/dl (6.3-8.2); Triglycerides 116 mg/dl (30-150); VLDL Cholesterol 23 mg/dL (0-40)
[2023-04-12 10:23] LABS: Direct LDL Cholesterol 86.74 mg/dL (100-129)
[2023-04-12 10:45] LABS: Prostate Specific Ag Screen < 0.1 ng/ml (0.0-4.0)
== END ==
PROVIDERS: PCP Internal Medicine Adolescent Medicine; Visit Provider Nurse Practitioner Family
DX: Z85.46 Personal history of malignant neoplasm of prostate (principal); E11.9 Type 2 diabetes mellitus without complications; E78.5 Hyperlipidemia, unspecified; Z00.00 Encounter for general adult medical examination without abnormal findings; I10 Essential (primary) hypertension; Z79.84 Long term (current) use of oral hypoglycemic drugs; Z12.5 Encounter for screening for malignant neoplasm of prostate
CPT/HCPCS: 36415; 80053; 80061; 83036; 85025; G0103

== ENCOUNTER 2024-10-23 16:42 | Observation (INO) | payer MEDICARE, SELFPAY ==
[2024-10-23] VITALS (8 sets, daily range): BP systolic 117–161; BP diastolic 47–87; PULSE 70–89; RESP 16–25; TEMP 36.9–37.2; O2SAT 89–94; BMI 29.7; BMI 28.0
--- NOTE | 2024-10-23 16:48 | ED_ITS ---
Discharge Plan Disposition Chief Complaint: Weakness Prescriptions Prescriptions: No Action aspirin 81 mg tablet 81 mg PO DAILY carvedilol 12.5 mg tablet 12.5 mg PO BID Qty: 180 5RF rosuvastatin 5 mg tablet 5 mg PO DAILY Qty: 90 3RF metformin 500 mg tablet extended release 24 hr 1,000 mg PO BID Referrals Follow up/Referrals: Jimmy Echols MD [Primary Care Provider] - See instructions Print Language Print Language: Cameroonian Discharge ED Provider: Coleen Kline General Adult HPI <KIKI Julian - Last Filed: 10/23/24 16:48> General Chief complaint: Weakness Stated complaint: Fever,vomiting, Time Seen by Provider: 10/23/24 16:48 Related Data Home Medications ?Medication ?Instructions ?Recorded ?Confirmed metformin 500 mg tablet,extended 500 mg PO BID Diabetes 01/23/19 10/23/24 release 24 hr aspirin 81 mg tablet 81 mg PO DAILY 09/27/22 10/23/24 Previous Rx's ?Medication ?Instructions ?Recorded carvedilol 12.5 mg tablet 12.5 mg PO BID #180 tabs 10/04/23 rosuvastatin 5 mg tablet 5 mg PO DAILY #90 tabs 10/04/23 Allergies Allergy/AdvReac Type Severity Reaction Status Date / Time meloxicam (From MOBIC) Allergy Unknown Verified 10/06/24 08:31 atorvastatin (From Lipitor) AdvReac Severe Muscle Pain Verified 10/06/24 08:31 ticagrelor (From Brilinta) AdvReac Intermediate dyspnea Verified 10/06/24 08:31 PFSH <KIKI Julian - Last Filed: 10/23/24 16:48> PFS Disclaimer: The information contained in this section may have been updated after the patient was seen, as this information can be updated by other users. Medical History Bruising Atypical angina Angina, class IV Dyspnea Surgical History S/P CABG x 2 Social History Smoking Status: Never smoker second hand exposure: No alcohol intake: never substance use type: denies use current occupational status: employed Travel in the last 8 weeks: Inside the [place] household members: spouse housing: house current occupational exposures/hazards: No caffeine: Yes Have you lived/traveled outside US in past 30 days?: No Contact w/someone who lives/traveled outside US past 30 days?: No Exposure to someone with infectious disease in past 14 days?: No Do you have a fever (greater than 100.4 F or 38 C)?: Yes Have you tested positive for COVID-19: No Exposed to someone with COVID-19 in past 14 days?: No Do you have a sore throat?: No Do you have a cough?: No Do you have any weakness?: No Do you have any diarrhea?: No Are you experiencing any unusual bleeding?: No Do you have any muscle aches/pain?: No Do you have any abdominal pain?: Yes Are you experiencing loss of taste or smell?: No Other Medical History Have you received the Flu Vaccine for this season: No Have you received the Pneumonia Vaccine: No <KIKI Julian - Last Filed: 10/23/24 16:48> ROS Obtained: Yes Systems reviewed as appropriate & no additional complaints except as documented Physical Exam <KIKI Julian Last Filed: 10/23/24 16:48> General General appearance: alert and in no apparent distress Head Head exam: atraumatic and normal inspection Eye Eye exam: Present normal appearance, PERRL and EOMI ENT ENT exam: Present normal exam, normal oropharynx and mucous membranes moist Neck Neck exam: Present normal inspection, full ROM and trachea midline; Absent lymphadenopathy Chest Chest inspection: Present normal inspection and symmetric chest wall rise Respiratory Respiratory exam: Present normal lung sounds bilaterally; Absent accessory muscle use Cardiovascular Cardiovascular exam: Present regular rate, normal rhythm, normal heart sounds, +S1 and +S2 Abdominal Exam Abdominal exam: Present soft and normal bowel sounds; Absent tenderness, guarding or rebound Extremities Exam Extremities exam: Present normal inspection and full ROM Neurological Exam Neurological exam: Present alert, oriented X3 and CN II-XII intact Psychiatric Psychiatric exam: Present normal affect and normal mood Skin Skin exam: Present warm, dry and normal color Lymphatic Lymphatic Findings: no adenopathy Medical Decision Making <KIKI Julian - Last Filed: 10/23/24 16:48> Medical Records Screening: Per USPSTF and CDC recommendations, given the prevalence of disease in our region, it is our hospital?s policy to screen for HIV and viral Hepatitis for all patients aged 18 and over and those with ongoing risk factors. Vital Signs: 10/23/24 16:43 10/23/24 17:00 Temperature 98.5 F Temperature Source Oral Pulse Rate 70 Pulse Rate [Left] 89 Respiratory Rate 22 Blood Pressure 161/87 H Blood Pressure [Left Arm] 161/87 H Blood Pressure Mean [Left Arm] 111 02 Sat by Pulse Oximetry 91 L 90 L Oxygen Delivery Method Room Air Room Air Orders (Tests/Meds): ED MEDICATIONS Generic Name Dose Route Start Last Admin Trade Name Freq PRN Reason Stop Dose Admin Sodium Chloride 1,000 mls @ 999 mls/hr 10/23/24 16:53 Sod Chlor 0.9% 1000ml Bag IV 10/23/24 17:53 .Q1H1M ONE Discontinued Medications Generic Name Dose Route Start Last Admin Trade Name Freq PRN Reason Stop Dose Admin Acetaminophen 1,000 mg 10/23/24 16:53 Acetaminophen 1,000mg/100ml Vial IV 10/23/24 16:54 ONCE ONE Ondansetron HCl 4 mg 10/23/24 16:53 Ondansetron 4mg/2ml Vial IV 10/23/24 16:54 ONCE ONE ORDERS Category Date Time Status HIV Combo Stat Lab 10/23/24 17:05 Ordered Hepatitis C Ab Qual. W/ RFX Stat Lab 10/23/24 17:05 Ordered Medical Decision Narrative: In summary patient is a [age, sex] who presents to the emergency department for evaluation of [complaint]. Patient is [hemodynamically stable/unstable] upon arrival, [febrile/afebrile]. [Unremarkable physical exam, nonfocal exam versus focal remarkable exam]. Differential diagnosis includes [DDx]. Initial workup will be conducted with [hematologic labs, imaging, respiratory swab, describe workup]. Initial interventions include [crystalloid bolus, medications, p.o. challenge, etc.] initial workup reviewed by me [hematologic labs are remarkable for... Imaging remarkable for... Urinalysis remarkable for]. Upon repeat evaluation [patient had acceptable resolution of symptoms, had persistent pain for which additional interventions were conducted (describe interventions), tolerated p.o., was ambulatory, etc.]. Given this [patient is appropriate for discharge at this time and will be discharged with a prescription for... The case was discussed with hospital medicine regarding management and they will admit the patient their service for continued evaluation at this time... Etc.] Places where you can increase complexity: I informally interpreted the patient's chest x-ray or CT read and is remarkable for... Documenting what the starcher and tenter range feeder shows with rate and rhythm Consideration of test but deferring. Ex: I considered chest x-ray on this patient however given that they have no oxygen requirement and are clear to auscultation all lung brown will be deferred. Social determinants of health: Given that patient is undomiciled increases complexity. Given that patient has polysubstance abuse compounds all aspects of care <Coleen Kline, DO - Last Filed: 10/23/24 17:12> Vital Signs: 10/23/24 16:43 10/23/24 17:00 Temperature 98.5 F Temperature Source Oral Pulse Rate 70 Pulse Rate [Left] 89 Respiratory Rate 22 Blood Pressure 161/87 H Blood Pressure [Left Arm] 161/87 H Blood Pressure Mean [Left Arm] 111 02 Sat by Pulse Oximetry 91 L 90 L Oxygen Delivery Method Room Air Room Air Orders (Tests/Meds): ED MEDICATIONS Generic Name Dose Route Start Last Admin Trade Name Freq PRN Reason Stop Dose Admin Sodium Chloride 1,000 mls @ 999 mls/hr 10/23/24 16:53 Sod Chlor 0.9% 1000ml Bag IV 10/23/24 17:53 .Q1H1M ONE Discontinued Medications Generic Name Dose Route Start Last Admin Trade Name Freq PRN Reason Stop Dose Admin Acetaminophen 1,000 mg 10/23/24 16:53 Acetaminophen 1,000mg/100ml Vial IV 10/23/24 16:54 ONCE ONE Ondansetron HCl 4 mg 10/23/24 16:53 Ondansetron 4mg/2ml Vial IV 10/23/24 16:54 ONCE ONE ORDERS Category Date Time Status HIV Combo Stat Lab 10/23/24 17:05 Ordered Hepatitis C Ab Qual. W/ RFX Stat Lab 10/23/24 17:05 Ordered ECG Data Tracing #1: I reviewed this ECG and interpreted as documented below: Normal sinus rhythm with frequent PVCs. Right axis deviation. No acute STEMI. Normal intervals. ECG initial impression date: 10/23/24 ECG initial impression time: 17:04
--- NOTE | 2024-10-23 17:02 | ECG_ITS ---
APPROVED REPORT Exam: Resting ECG HR:89 bpm ECG Measurements Heart Rate 89 AXES ME 145 P 83 QRSd 92 QRS 101 QT 353 T 94 QTc 399 Conclusion SINUS RHYTHM WITH FREQUENT VENTRICULAR PREMATURE COMPLEXES RIGHT AXIS DEVIATION [QRS AXIS > 100] ABNORMAL ECG UNCONFIRMED REPORT Electronically signed by : LYDIA VANCE, 10/24/2024 06:51:39
[2024-10-23] MEDS: ONDANSETRON 4MG/2ML VIAL 4 MG IV (17:11)
[2024-10-23] MEDS: ACETAMINOPHEN 1,000MG/100ML VIAL 1000 MG IV (17:11)
[2024-10-23] MEDS: 0.9 % SODIUM CHLORIDE 1000ML 1,000 ML 999 ML IV (17:11)
--- NOTE | 2024-10-23 17:21 | XR_ITS ---
PROCEDURE INFORMATION: Exam: XR Chest Exam date and time: 10/23/2024 5:22 PM Age: 69 years old Clinical indication: Cough; Additional info: Cough, SOA TECHNIQUE: Imaging protocol: Radiologic exam of the chest. Views: 2 views. COMPARISON: CT CHEST WO/W CON 07/26/2021 11:42 AM FINDINGS: Lungs: Lungs are hyperinflated with COPD changes. No acute pulmonary infiltrates identified. Pleural spaces: Unremarkable. No pleural effusion. No pneumothorax. Heart/Mediastinum: Multiple coronary artery stents. The heart is normal in size. Previous CABG. Bones/joints: Prior median sternotomy. Previous surgical fusion of the lower cervical spine. IMPRESSION: 1. COPD but no suggestion of acute pulmonary infiltrates. 2. Previous median sternotomy and CABG. The heart is normal in size. No evidence of pulmonary edema at this time.
[2024-10-23 17:28] LABS: Lactate Venous 1.4 mmol/L (0.4-2.0); VBG Base Excess -5.4 mmol/L (-2.4-2.3); VBG HCO3 18.6 mmol/L (23-30); VBG Oxygen Saturation 94.6 % (50-70); VBG PCO2 27.4 mmol/L (35-51); VBG PH 7.45 mmol/L (7.31-7.41); VBG PO2 71.9 mmol/L (28-40); VBG Total CO2 19.5 mmol/L (23-27)
[2024-10-23 17:30] LABS: Basophils % 0.3 % (0.1-2.0); Chloride 103 mmol/L (98-107); Eosinophils % 0.1 % (0.1-12.0); Hematocrit 47.2 % (42.0-52.0); Hemoglobin 16.4 g/dL (14.1-18.0); Lymphocytes # 0.8 K/mm3 (0.7-4.5); Lymphocytes % 10.5 % (10-50); Mean Corpuscular HGB Conc 34.7 g/dL (31.8-35.4); Mean Corpuscular Hemoglobin 29.8 pg (27.0-31.2); Mean Corpuscular Volume 85.8 fl (80-94); Mean Platelet Volume 10.9 fl (7.4-10.4); Monocytes # 0.5 K/mm3 (0.1-1.0); Monocytes % 6.2 % (1.7-9.3); Neutrophils # 6.1 K/mm3 (1.8-7.8); Neutrophils % 82.5 % (37.0-80.0); Platelet Count 163 K/mm3 (142-424); Red Cell Distribution Width 13.1 % (11.5-17.5); White Blood Count 7.4 K/mm3 (4.8-10.8)
--- NOTE | 2024-10-23 17:30 | HMH.EDGENADL ---
Discharge Plan Disposition Patient Disposition: Admitted Condition: Good Clinical Impressions Clinical Impression: Respiratory failure Discharge ED Provider: Coleen Kline General Adult HPI General Chief complaint: Weakness Stated complaint: Fever,vomiting, Time Seen by Provider: 10/23/24 16:48 Mode of Arrival: Wheelchair Source of Information: Patient Limitations: No Limitations Description of Symptoms (Recalled from ER Triage Doc. by RN): positive for FLU. short of breath,fever,body aches. since sunday History of Present Illness HPI narrative: This patient is a 69-year-old male with a history of CAD, carotid stenosis, hypertension, hypertensive heart disease, reported history of COPD not on any maintenance inhalers, type 2 diabetes, hyperlipidemia presenting to the emergency department for evaluation with concern for generally feeling unwell. Patient states that he started getting sick on Friday 10/20, saw PCP Saturday 10/21 and tested positive for the flu. Since then, he notes has been feeling worse. He has had cough, shortness of breath, body aches, nausea, vomiting, and diarrhea. Has not been able to keep much down. Related Data Home Medications ?Medication ?Instructions ?Recorded ?Confirmed metformin 500 mg tablet,extended 500 mg PO BID Diabetes 01/23/19 10/23/24 release 24 hr aspirin 81 mg tablet 81 mg PO DAILY 09/27/22 10/23/24 Previous Rx's ?Medication ?Instructions ?Recorded carvedilol 12.5 mg tablet 12.5 mg PO BID #180 tabs 10/04/23 rosuvastatin 5 mg tablet 5 mg PO DAILY #90 tabs 10/04/23 Allergies Allergy/AdvReac Type Severity Reaction Status Date / Time meloxicam (From MOBIC) Allergy Unknown Verified 10/06/24 08:31 atorvastatin (From Lipitor) AdvReac Severe Muscle Pain Verified 10/06/24 08:31 ticagrelor (From Brilinta) AdvReac Intermediate dyspnea Verified 10/06/24 08:31 [facility] Disclaimer: The information contained in this section may have been updated after the patient was seen, as this information can be updated by other users. Medical History Bruising Atypical angina Angina, class IV Dyspnea Surgical History S/P CABG x 2 Family History (Updated 10/23/24 @ 21:30 by Agnes Chowdhury RN) Other Family history of diabetes mellitus Family history of heart disease Social History (Updated 10/23/24 @ 21:29 by Agnes Chowdhury RN) Smoking Status: Never smoker second hand exposure: No alcohol intake: never substance use type: denies use current occupational status: employed Travel in the last 8 weeks: [place] the [place] household members: spouse housing: house current occupational exposures/hazards: No caffeine: Yes Have you lived/traveled outside US in past 30 days?: No Contact w/someone who lives/traveled outside US past 30 days?: No Exposure to someone with infectious disease in past 14 days?: No Do you have a fever (greater than 100.4 F or 38 C)?: Yes Have you tested positive for COVID-19: No Exposed to someone with COVID-19 in past 14 days?: No Do you have a sore throat?: No Do you have a cough?: No Do you have any weakness?: No Are you experiencing any nausea/vomitting?: No Do you have any diarrhea?: No Are you experiencing any unusual bleeding?: No Do you have any muscle aches/pain?: No Do you have any abdominal pain?: Yes Are you experiencing loss of taste or smell?: No Other Medical History Have you received the Flu Vaccine for this season: No Have you received the Pneumonia Vaccine: No ROS Obtained: Yes All systems reviewed & no additional complaints except as documented Physical Exam General General appearance: alert and in no apparent distress Head Head exam: atraumatic and normocephalic Eye Eye exam: Present normal appearance, PERRL and EOMI ENT ENT exam: Present normal exam, normal oropharynx, mucous membranes moist and normal external ear exam Neck Neck exam: Present normal inspection, full ROM and trachea midline; Absent tenderness Chest Chest inspection: Present normal inspection and symmetric chest wall rise; Absent tenderness Respiratory Respiratory exam: Present normal lung sounds bilaterally; Absent respiratory distress, wheezes, stridor or accessory muscle use Cardiovascular Cardiovascular exam: Present regular rate and normal rhythm Abdominal Exam Abdominal exam: Present soft; Absent distention, tenderness or guarding Extremities Exam Extremities exam: Present normal inspection, full ROM and normal capillary refill; Absent tenderness or edema Back Exam Back exam: Present normal inspection and full ROM; Absent tenderness Neurological Exam Neurological exam: Present alert, oriented X3, CN II-XII intact and normal gait; Absent motor sensory deficit Psychiatric Psychiatric exam: Present normal affect and normal mood Skin Skin exam: Present warm and dry Medical Decision Making Medical Records Medical records reviewed: Yes I reviewed the patient's medical records. Screening: Per USPSTF and CDC recommendations, given the prevalence of disease in our region, it is our hospital?s policy to screen for HIV and viral Hepatitis for all patients aged 18 and over and those with ongoing risk factors. Klaus Inquiry Pt receiving controlled substance: No Vital Signs: 10/23/24 16:43 10/23/24 17:00 10/23/24 18:00 Temperature 98.5 F Temperature Source Oral Pulse Rate 70 86 Pulse Rate [Left] 89 Respiratory Rate 22 20 Blood Pressure 161/87 H 122/62 Blood Pressure [Left Arm] 161/87 H Blood Pressure Mean [Left Arm] 111 Blood Pressure Source Blood Pressure Source [Left Arm] Blood Pressure Position 02 Sat by Pulse Oximetry 91 L 90 L 91 L Oxygen Delivery Method Room Air Room Air Room Air Oxygen Flow Rate (LPM) 10/23/24 18:30 10/23/24 19:00 10/23/24 19:30 Temperature Temperature Source Pulse Rate 85 80 78 Pulse Rate [Left] Respiratory Rate 25 H 21 23 Blood Pressure 130/66 126/61 118/47 L Blood Pressure [Left Arm] Blood Pressure Mean [Left Arm] Blood Pressure Source Blood Pressure Source [Left Arm] Blood Pressure Position 02 Sat by Pulse Oximetry 92 L 90 L 89 L Oxygen Delivery Method Room Air Nasal Cannula Nasal Cannula Oxygen Flow Rate (LPM) 2 3 10/23/24 19:50 10/23/24 20:00 10/23/24 20:00 Temperature 98.9 F Temperature Source Oral Pulse Rate 79 Pulse Rate [Left] 79 Respiratory Rate 24 16 Blood Pressure 117/65 Blood Pressure [Left Arm] 117/65 Blood Pressure Mean [Left Arm] 82 Blood Pressure Source Blood Pressure Source [Left Arm] Automatic Cuff Blood Pressure Position 02 Sat by Pulse Oximetry 90 L 90 L Oxygen Delivery Method Nasal Cannula Nasal Cannula Nasal Cannula Oxygen Flow Rate (LPM) 2 3 2 10/23/24 20:34 Temperature 98.4 F Temperature Source Oral Pulse Rate 88 Pulse Rate [Left] Respiratory Rate 20 Blood Pressure 140/70 Blood Pressure [Left Arm] Blood Pressure Mean [Left Arm] Blood Pressure Source Automatic Cuff Blood Pressure Source [Left Arm] Blood Pressure Position Sitting 02 Sat by Pulse Oximetry Oxygen Delivery Method Room Air Oxygen Flow Rate (LPM) Lab Data Lab results reviewed: Yes I reviewed the patient's lab results. Lab Results 10/23/24 17:10: WBC 7.4, RBC 5.50, Hgb 16.4, Hct 47.2, MCV 85.8, MCH 29.8, MCHC 34.7, RDW 13.1, Plt Count 163, MPV 10.9 H, Neut % (Auto) 82.5 H, Lymph % (Auto) 10.5, [place] % (Auto) 6.2, Eos % (Auto) 0.1, Baso % (Auto) 0.3, Neut # (Auto) 6.1, Lymph # (Auto) 0.8, [place] # (Auto) 0.5, Eos # (Auto) 0.0, Baso # (Auto) 0.0, Sodium 135 L, Potassium 4.3, Chloride 103, Carbon Dioxide 19 L, Anion Gap 17.3 H, BUN 14, Creatinine 0.80, Estimated Creat Clear 98, Estimated GFR 96, Est GFR ( Amer) 117, Glucose 212 H, Calcium 8.5, Magnesium 1.5 L, Total Bilirubin 1.0, AST 36, ALT 27, Alkaline Phosphatase 88, Total Protein 7.2, Albumin 4.3, Globulin 2.9, Albumin/Globulin Ratio 1.5, HCV Ab ALEJANDRO w/Rflx PCR Qn Negative, HIV Ag/Ab Combo Qual Negative 10/23/24 17:22: VBG pH 7.45 H, VBG pCO2 27.4 L, VBG pO2 71.9 H, VBG HCO3 18.6 L, VBG Total CO2 19.5 L, VBG O2 Saturation 94.6 H, VBG Base Excess -5.4 L, VBG Lactic Acid 1.4 10/23/24 17:29: SARS-CoV-2 (PCR) Not detected, Influenza A Untype (PCR) Detected A, Influenza Type B (PCR) Not detected 10/23/24 20:33: NT-Pro-B Natriuret Pep 699 H 10/23/24 17:10 10/23/24 17:10 Orders (Tests/Meds): ED MEDICATIONS Generic Name Dose Route Start Last Admin Trade Name Freq PRN Reason Stop Dose Admin Acetaminophen 650 mg 10/23/24 20:12 Acetaminophen 325mg Tab PO 11/22/24 20:11 Q4HP PRN Fever or Mild Pain (1-3) Sodium Chloride 1,000 mls @ 50 mls/hr 10/23/24 20:15 10/23/24 22:15 Sod Chlor 0.9% 1000ml Bag IV 11/22/24 20:14 50 mls/hr .Q20H NEAL Administration Insulin Human Lispro 0 unit 10/23/24 21:00 10/23/24 22:15 Humalog 100 Units/Ml 10ml Vial (Ssi) SUBCUT 11/22/24 20:59 264 unit ACHS NEAL Administration Protocol Ondansetron HCl 4 mg 10/23/24 20:12 Ondansetron 4mg/2ml Vial IV 11/22/24 20:11 Q8HP PRN Nausea Oseltamivir Phosphate 75 mg 10/23/24 21:00 10/23/24 22:16 Oseltamivir 75mg Capsule PO 10/28/24 09:01 75 mg BID NEAL Administration Promethazine HCl/Codeine 5 ml 10/23/24 22:09 10/23/24 22:40 Promethazine W/Codeine 6.25mg/10mg 5ml Udc PO 11/22/24 22:08 5 ml Q4HP PRN Administration Cough Sodium Chloride 10 ml 10/23/24 20:12 Sodium Chloride 0.9% 10ml Flush Syringe IV 11/22/24 20:11 NEEDED PRN Maintain IV Site Discontinued Medications Generic Name Dose Route Start Last Admin Trade Name Lety PRN Reason Stop Dose Admin Acetaminophen 1,000 mg 10/23/24 16:53 10/23/24 17:11 Acetaminophen 1,000mg/100ml Vial IV 10/23/24 16:54 1,000 mg ONCE ONE Administration Albuterol/Ipratropium 3 ml 10/23/24 17:47 10/23/24 18:19 Ipratropium/Albuterol 3 Ml Neb IH 10/23/24 17:48 3 ml ONCE ONE Administration Sodium Chloride 1,000 mls @ 999 mls/hr 10/23/24 16:53 10/23/24 17:11 Sod Chlor 0.9% 1000ml Bag IV 10/23/24 17:53 999 mls/hr .Q1H1M ONE Administration Magnesium Sulfate 2 gm in 50 mls @ 50 mls/hr 10/23/24 19:05 10/23/24 19:14 Magnesium Sulfate 2gm/50ml Premix IV 10/23/24 20:04 50 mls/hr ONCE ONE Administration Ondansetron HCl 4 mg 10/23/24 16:53 10/23/24 17:11 Ondansetron 4mg/2ml Vial IV 10/23/24 16:54 4 mg ONCE ONE Administration ORDERS Category Date Time Status CXR 2 view (NOT portable) [XR chest 2V] Stat Exams 10/23/24 17:21 Completed BNP [NT Pro Brain Natriuretic Pep.] Stat Lab 10/23/24 20:33 Completed Basic Metabolic Panel AMLAB Lab 10/24/24 06:00 Ordered Basic Metabolic Panel AMLAB Lab 10/25/24 06:00 Ordered Basic Metabolic Panel AMLAB Lab 10/26/24 06:00 Ordered Basic Metabolic Panel AMLAB Lab 10/27/24 06:00 Ordered Basic Metabolic Panel AMLAB Lab 10/28/24 06:00 Ordered Complete Blood Count Auto Diff AMLAB Lab 10/24/24 06:00 Ordered Complete Blood Count Auto Diff AMLAB Lab 10/25/24 06:00 Ordered Complete Blood Count Auto Diff AMLAB Lab 10/26/24 06:00 Ordered Complete Blood Count Auto Diff AMLAB Lab 10/27/24 06:00 Ordered Complete Blood Count Auto Diff AMLAB Lab 10/28/24 06:00 Ordered Complete Blood Count Auto Diff Stat Lab 10/23/24 17:10 Completed Comprehensive Metabolic Panel Stat Lab 10/23/24 17:10 Completed HIV Combo Stat Lab 10/23/24 17:10 Completed Hepatitis C Ab Qual. W/ RFX Stat Lab 10/23/24 17:10 Completed MAG [Magnesium] Stat Lab 10/23/24 17:10 Completed Magnesium AMLAB Lab 10/24/24 06:00 Ordered Rapid PCR Covid and Flu A/B Stat Lab 10/23/24 17:29 Completed Blood Culture Stat Micro 10/23/24 17:29 Received VBG [Venous Blood Gas] Stat RT 10/23/24 17:22 Completed ECG Data Tracing #1: I reviewed this ECG and interpreted as documented below: Normal sinus rhythm with frequent PVCs. Ventricular rate of [address] changes concerning for STEMI. Normal intervals. ECG initial impression date: 10/23/24 ECG initial impression time: 17:04 Medical Decision Narrative: In summary, this patient is a 69-year-old male presenting to the Emergency Department for evaluation of general weakness, shortness of breath, persistent cough, body aches, nausea, vomiting, and diarrhea in the setting of influenza virus. Differential diagnoses considered include but are not limited to respiratory failure, COPD exacerbation, dehydration, electrolyte derangements, pneumonia, sepsis. Ruling out the most morbid conditions drove assessment. It should be noted patient's history includes type 2 diabetes, extensive cardiovascular history, reported COPD which may or may not be at goal therapy. This complicates all aspects of care by increasing patient's risk for morbidity. I reviewed patient's past medical records and noted prior evaluations by cardiology for CAD. On exam, the patient is lying in bed in no acute distress. He has a dry, hacking cough that is persistent. He does have good breath sounds bilaterally with no notable wheezing. He notes he has a history of reported COPD, but he stopped smoking many years ago and has never had to use inhalers. Abdominal exam is benign. Workup included basic lab evaluation as well as chest x-ray, EKG. EKG demonstrates very frequent PVCs but otherwise no acute ST changes. Lab evaluation looks like the patient is a little bit dry with mild hyponatremia, mildly low CO2, mildly elevated anion gap, mild hypomagnesemia. Patient arrives hypoxic with an O2 saturation in the high 80s. I gave the patient a DuoNeb without change in his respiratory status. He continues to have an O2 saturation of 86% on room air, requiring 2 L nasal cannula. I independently interpreted chest x-ray prior to the radiologist read and noted no obvious large focal consolidation concerning for bacterial pneumonia. Please see their read for final interpretation. He has no significant leukocytosis and no large consolidation on x-ray, so I feel that this is likely all related to influenza. Given continued hypoxia in the setting of influenza, I feel the patient would benefit from admission for continued monitoring. I had an interactive discussion with the hospitalist who admitted the patient in stable condition. Critical Care Critical Care Time Critical Care Time: No
[2024-10-23 17:31] LABS: Albumin Level 4.3 g/dl (3.5-5.0); Potassium 4.3 mmoL/L (3.5-5.1); Sodium 135 mmol/L (136-145)
--- NOTE | 2024-10-23 17:32 | PC.NURSE ---
BLUE ARM BRACELET PLACED ON PT AFTER I OBTAINED BOTH SET OF BLOOD CULTURES
--- NOTE | 2024-10-23 17:32 | PC.NURSE ---
PT GOING TO XRAY VIA WHEELCHAIR
[2024-10-23 17:34] LABS: Alanine Aminotransferase 27 U/L (12-78); Albumin/Globulin Ratio 1.5 (1.1-1.8); Alkaline Phosphatase 88 U/L (38-126); Anion Gap 17.3 mEq/L (5-15); Aspartate Amino Transferase 36 U/L (17-59); Blood Urea Nitrogen 14 mg/dl (9-20); Calcium 8.5 mg/dl (8.4-10.2); Carbon Dioxide 19 mmol/L (22.0-30.0); Creatinine Clearance Estimated 98 mL/min (50-200); Estimated Glomerular Filt Rate 96 ml/min (>60); GFR (African American) 117 ML/MIN (>60); Globulin 2.9 g/dL (1.3-3.2); Glucose 212 mg/dl (74-100); Magnesium 1.5 mg/dl (1.6-2.3); Total Protein,Serum 7.2 g/dl (6.3-8.2)
--- NOTE | 2024-10-23 17:37 | PC.NURSE ---
back from radiology
[2024-10-23 17:43] LABS: Coronavirus 19, PCR Not Detected (NotDetected); Influenza B, PCR Not Detected (NotDetected)
[2024-10-23] MEDS: IPRATROPIUM/ALBUTEROL 3 ML NEB IH (18:19)
[2024-10-23 18:21] LABS: Influenza A, PCR Detected (NotDetected)
[2024-10-23 18:46] LABS: HIV Combo NEGATIVE (Negative)
[2024-10-23 18:54] LABS: Hepatitis C Ab Qual. W/ RFX NEGATIVE (Negative)
[2024-10-23] MEDS: MAGNESIUM SULFATE IN WATER 2 GM/50 ML PIGGYBACK IV (19:14)
--- NOTE | 2024-10-23 19:28 | PC.NURSE ---
Patient's O2 was turned up to 3L on nasal cannula.
--- NOTE | 2024-10-23 20:22 | PC.NURSE ---
Patient arrived to floor via stretcher from ED at 20:21.
[2024-10-23 21:10] LABS: NT Pro Brain Natriuretic Pep. 699 pg/mL (0-125)
[2024-10-23 21:33] LABS: POC Glucose,Bedside 264 (70-110)
[2024-10-23] MEDS: 0.9 % SODIUM CHLORIDE 1000ML 1,000 ML 50 ML IV (22:15)
[2024-10-23] MEDS: humaLOG 100 UNITS/ML 10ML VIAL (SSI) SUBCUT (22:15)
[2024-10-23] MEDS: OSELTAMIVIR 75MG CAPSULE 75 MG PO (22:16)
[2024-10-23] MEDS: PROMETHAZINE W/CODEINE 6.25MG/10MG 5ML UDC 5 ML PO (22:40)
[2024-10-24] VITALS: BP 120/64; PULSE 72; RESP 16; TEMP 36.9; O2SAT 91
--- NOTE | 2024-10-24 03:00 | EXP.HP ---
History of Present Illness *Admission Date: 10/23/24 *Reason for visit:: Shortness of breath *History of present illness: Mr. Ryan is a 69-year-old male with a past medical history notable for coronary artery disease, carotid stenosis, hypertension with hypertensive heart disease, a reported history of COPD (though he is not on maintenance inhalers and is a remote smoker), type 2 diabetes mellitus, and hyperlipidemia. He presents to the ED complaining of generalized malaise that began on Sunday, October 20, 2024. He reports that after initially feeling unwell, he sought care with his primary care provider on October 21, and tested positive for influenza A. Since that time, his condition has progressively worsened. He describes a persistent, dry, hacking cough accompanied by shortness of breath, diffuse body aches, and significant gastrointestinal symptoms including nausea, vomiting, and diarrhea, which have impaired his ability to maintain adequate oral intake. On arrival, his oxygen saturation on room air was in the mid-to-high 80s, prompting initiation of supplemental oxygen at 2L/min via nasal cannula. Physical examination revealed a patient who was lying in bed, not in acute distress despite his symptoms, with clear breath sounds bilaterally and no wheezing appreciated on auscultation. Given his reported history of COPD, a DuoNeb treatment was administered; however, this intervention did not yield a noticeable improvement in his oxygenation status. Initial laboratory workup demonstrated mild hyponatremia, a low serum bicarbonate with a corresponding low pCO2 on the venous blood gas (suggesting a respiratory alkalosis possibly related to his influenza infection), and mild hypomagnesemia. An EKG performed in the ED revealed normal sinus rhythm with frequent premature ventricular contractions but no acute ST changes to suggest ischemia. Overall, his clinical presentation is consistent with an influenza A infection complicated by dehydration (secondary to his gastrointestinal losses) and respiratory compromise, in the context of his significant cardiovascular history, warrants admission for further monitoring and evaluation. [facility] Disclaimer: The information contained in this section may have been updated after the patient was seen, as this information can be updated by other users. Medical History Bruising Atypical angina Angina, class IV Dyspnea Surgical History S/P CABG x 2 Family History Other Family history of diabetes mellitus Family history of heart disease Social History Smoking Status: Never smoker second hand exposure: No alcohol intake: never substance use type: denies use current occupational status: employed Travel in the last 8 weeks: Inside the [place] household members: spouse housing: house current occupational exposures/hazards: No caffeine: Yes Other Medical History Have you received the Flu Vaccine for this season: No Have you received the Pneumonia Vaccine: No Review of Systems Review of Systems Review of systems (narrative): 13 point review of systems negative except as listed in HPI Meds Home Medications and Allergies Home Medications ?Medication ?Instructions ?Recorded ?Confirmed ?Type metformin 500 mg tablet,extended 1,000 mg PO BID Diabetes 01/23/19 10/24/24 History release 24 hr aspirin 81 mg tablet 81 mg PO DAILY 09/27/22 10/23/24 History carvedilol 12.5 mg tablet 12.5 mg PO BID #180 tabs 10/04/23 10/23/24 Rx rosuvastatin 5 mg tablet 5 mg PO DAILY #90 tabs 10/04/23 10/23/24 Rx fluticasone fur. 100 mcg-umeclid 1 inh inhalation DAILY #0 ea 10/24/24 Rx 62.5 mcg-vilant 25 mcg inhalat.powder (Trelegy Ellipta) oseltamivir 75 mg capsule (Tamiflu) 75 mg PO BID 4 days #8 caps 10/24/24 Rx promethazine 6.25 mg-codeine 10 5 ml PO Q4HP PRN Cough 7 days #118 10/24/24 Rx mg/5 mL syrup mL New Prescriptions to Start Prescriptions: oseltamivir [Tamiflu] Chad Carney promethazine-codeine Chad Carney Allergies Allergy/AdvReac Type Severity Reaction Status Date / Time meloxicam (From MOBIC) Allergy Unknown Verified 10/06/24 08:31 atorvastatin (From Lipitor) AdvReac Severe Muscle Pain Verified 10/06/24 08:31 ticagrelor (From Brilinta) AdvReac Intermediate dyspnea Verified 10/06/24 08:31 Exam Data for Last 24 hours Vital signs and Labs for Last 24 Hours: Temp Pulse Resp BP Pulse Ox O2 Del Method O2 Flow Rate 98.5 F 72 16 120/64 91 L Nasal Cannula 3 10/24/24 00:00 10/24/24 00:00 10/24/24 00:00 10/24/24 00:00 10/24/24 00:00 10/24/24 01:00 10/24/24 01:00 Laboratory Results - last 24 hr 10/23/24 17:10: WBC 7.4, RBC 5.50, Hgb 16.4, Hct 47.2, MCV 85.8, MCH 29.8, MCHC 34.7, RDW 13.1, Plt Count 163, MPV 10.9 H, Neut % (Auto) 82.5 H, Lymph % (Auto) 10.5, [place] % (Auto) 6.2, Eos % (Auto) 0.1, Baso % (Auto) 0.3, Neut # (Auto) 6.1, Lymph # (Auto) 0.8, [place] # (Auto) 0.5, Eos # (Auto) 0.0, Baso # (Auto) 0.0, Sodium 135 L, Potassium 4.3, Chloride 103, Carbon Dioxide 19 L, Anion Gap 17.3 H, BUN 14, Creatinine 0.80, Estimated Creat Clear 98, Estimated GFR 96, Est GFR ( Amer) 117, Glucose 212 H, Calcium 8.5, Magnesium 1.5 L, Total Bilirubin 1.0, AST 36, ALT 27, Alkaline Phosphatase 88, Total Protein 7.2, Albumin 4.3, Globulin 2.9, Albumin/Globulin Ratio 1.5, HCV Ab ALEJANDRO w/Rflx PCR Qn Negative, HIV Ag/Ab Combo Qual Negative 10/23/24 17:22: VBG pH 7.45 H, VBG pCO2 27.4 L, VBG pO2 71.9 H, VBG HCO3 18.6 L, VBG Total CO2 19.5 L, VBG O2 Saturation 94.6 H, VBG Base Excess -5.4 L, VBG Lactic Acid 1.4 10/23/24 17:29: SARS-CoV-2 (PCR) Not detected, Influenza A Untype (PCR) Detected A, Influenza Type B (PCR) Not detected 10/23/24 20:33: NT-Pro-B Natriuret Pep 699 H 10/23/24 21:24: POC Glucose 264 H I & O for Last 24 hours: Intake & Output 10/21/24 10/22/24 10/23/24 10/24/24 23:59 23:59 23:59 23:59 Weight 90.809 kg Constitutional Constitutional: no acute distress *Routine HEENT Exam Head: Present normocephalic Eye: Present EOMI and PERRL ENT: Present mucous membranes moist *Routine Neck Exam Neck: Present supple; Absent lymphadenopathy *Routine Respiratory Exam Respiratory: Present CTA bilaterally *Routine Cardiovascular Exam Cardiovascular: Present RRR *Routine Abdominal Exam Abdominal: Present soft and normoactive bowel sounds; Absent tenderness *Routine Rectal Exam Rectal:: deferred *Routine Genitalia Exam Genitalia:: deferred *Routine Extremities Exam Extremities: Absent cyanosis, clubbing or edema *Routine Skin Exam Skin: Present warm; Absent rash *Routine Neurological Exam Neurological: Present alert and oriented X3 Assessment and Plan *Assessment and plan (1) Respiratory failure: Status: Acute Category: Medical Code(s): J96.90 - Respiratory failure, unspecified, unspecified whether with hypoxia or hypercapnia (2) Type 2 diabetes mellitus: Status: Chronic Qualifiers: Diabetes mellitus complication status: without complication Diabetes mellitus longterm insulin use: without longterm use Qualified Code(s): E11.9 - Type 2 diabetes mellitus without complications Category: Medical Code(s): E11.9 - Type 2 diabetes mellitus without complications (3) Hyperlipemia: Status: Chronic Qualifiers: Hyperlipidemia type: pure hypercholesterolemia Qualified Code(s): E78.00 - Pure hypercholesterolemia, unspecified; E78.0 - Pure hypercholesterolemia Category: Medical Code(s): E78.5 - Hyperlipidemia, unspecified (4) Essential (primary) hypertension: Status: Chronic Category: Medical Code(s): I10 - Essential (primary) hypertension (5) Influenza A: Status: Acute Category: Medical Code(s): J10.1 - Influenza due to other identified influenza virus with other respiratory manifestations (6) CAD (coronary artery disease): Status: Chronic Qualifiers: Associated angina: without angina Coronary Disease-Associated Artery/Lesion type: [place] artery [place] vs. transplanted heart: [place] heart Qualified Code(s): I25.10 - Atherosclerotic heart disease of [place] coronary artery without angina pectoris Category: Medical Code(s): I25.10 - Atherosclerotic heart disease of [place] coronary artery without angina pectoris Plan Medical decision making: presentation is most consistent with an influenza A infection complicated by dehydration and electrolyte derangements, with his underlying cardiovascular disease (CAD, carotid stenosis, hypertensive heart disease) increasing his risk for adverse events. . His oxygen saturation on room air in the high 80s?with only minimal improvement following a DuoNeb treatment?supports mild hypoxemia that has responded appropriately to low-flow oxygen supplementation (2L/min nasal cannula) Given his cardiovascular comorbidities, diabetes, and the potential for further decompensation from influenza, close monitoring is warranted while addressing his dehydration, electrolyte abnormalities, and respiratory status. Influenza A Infection Confirmed by PCR; patient presents with cough, body aches, nausea, vomiting, and diarrhea. Initiate oseltamivir 75mg twice daily for 5 days. Administer acetaminophen 650?mg every 6 hours for fever and myalgias. Provide supportive care including antipyretics and rest. Dehydration and Electrolyte Derangements Presenting symptoms of nausea, vomiting, and diarrhea with laboratory evidence of mild hyponatremia and low magnesium (1.5). Received fluid bolus in the emergency department Begin IV normal saline at 50/h while closely monitoring for volume overload due to underlying cardiovascular disease. Administer IV magnesium sulfate 2g over 1 hour and recheck magnesium levels in 4?6 hours; adjust electrolyte replacement accordingly. Respiratory Support Initial room air oxygen saturation in the high 80s improved to target levels with 2?L/min via nasal cannula. Continue oxygen supplementation at 2L/min, titrating as necessary to maintain saturations >=2%. Reassess respiratory status periodically with pulse oximetry and, if indicated, repeat blood gas evaluation. Cardiac Monitoring and Arrhythmia Management History of CAD, carotid stenosis, and hypertensive heart disease; EKG reveals frequent PVCs. Likely result of electrolyte imbalance and dehydration Maintain continuous cardiac telemetry monitoring. Optimize electrolyte balance (focus on magnesium and potassium) to help reduce arrhythmias. If PVCs become more frequent or symptomatic, consult cardiology for further evaluation and management. Diabetes Management Blood glucose is elevated at 212mg/dL. Check blood glucose levels every 4?6 hours. Adjust diabetes regimen as needed; initiate sliding-scale insulin therapy as indicated to maintain glycemic control. Hypertension and Cardiovascular Disease Continue current antihypertensive medications with careful blood pressure monitoring. Avoid aggressive IV fluid administration due to risk of volume overload, especially in the setting of diastolic dysfunction. Continue maintenance fluid IV NS at 50 General Monitoring and Disposition Reassess vital signs, laboratory values, and clinical status regularly. Monitor for any signs of clinical deterioration including worsening respiratory status, hemodynamic instability, or increased arrhythmia burden. Given the patient?s multiple comorbidities and current acute illness, consider observation or inpatient admission for close monitoring and continued supportive care. Subcu Lovenox Rounded on patient after nurse practitioner. Personally examined and interviewed patient. Agree with exam findings and care plan as documented.
--- NOTE | 2024-10-24 03:15 | PC.NURSE ---
PT REMAINS ALERT AND ORIENTED X4. STATES HE FEELS MUCH BETTER THAN WHAT HE DID WHEN FIRST COMING INTO THE ED. O2 SATS LOW 90S ON 2L NC. INCREASED O2 TO 3L NC WHILE PT IS SLEEPING DUE TO SATURATION 89%. PT HAS SLEPT MAJORITY OF SHIFT, NO NEEDS AT THIS TIME, CB WITHIN REACH.
[2024-10-24 04:00] VITALS: BP 113/60; PULSE 57; RESP 16; TEMP 37.4; O2SAT 91; BMI 27.9
[2024-10-24] MEDS: PROMETHAZINE W/CODEINE 6.25MG/10MG 5ML UDC 5 ML PO (04:05)
[2024-10-24 05:38] LABS: POC Glucose,Bedside 186 (70-110)
[2024-10-24] MEDS: BENZONATATE 100MG CAPSULE 100 MG PO ×2 (05:44→09:51)
[2024-10-24] MEDS: ACETAMINOPHEN 325MG TAB 650 MG PO ×2 (05:44→09:51)
[2024-10-24] MEDS: humaLOG 100 UNITS/ML 10ML VIAL (SSI) SUBCUT ×2 (05:44→11:52)
[2024-10-24 06:10] LABS: Basophils % 0.1 % (0.1-2.0); Hematocrit 44.2 % (42.0-52.0); Hemoglobin 15.1 g/dL (14.1-18.0); Lymphocytes # 1.1 K/mm3 (0.7-4.5); Mean Corpuscular HGB Conc 34.2 g/dL (31.8-35.4); Mean Corpuscular Volume 87.9 fl (80-94); Monocytes # 0.4 K/mm3 (0.1-1.0); Monocytes % 5.4 % (1.7-9.3); Neutrophils # 6.2 K/mm3 (1.8-7.8); Neutrophils % 80.2 % (37.0-80.0); Platelet Count 139 K/mm3 (142-424); Red Blood Count 5.03 M/mm3 (4.60-6.20); Red Cell Distribution Width 12.9 % (11.5-17.5); White Blood Count 7.8 K/mm3 (4.8-10.8)
[2024-10-24 06:16] LABS: Chloride 104 mmol/L (98-107); Potassium 4.3 mmoL/L (3.5-5.1); Sodium 135 mmol/L (136-145)
[2024-10-24 06:18] LABS: Blood Urea Nitrogen 15 mg/dl (9-20); Creatinine Clearance Estimated 92 mL/min (50-200); Estimated Glomerular Filt Rate 84 ml/min (>60); GFR (African American) 102 ML/MIN (>60)
[2024-10-24 06:19] LABS: Anion Gap 13.3 mEq/L (5-15); Calcium 7.9 mg/dl (8.4-10.2); Carbon Dioxide 22 mmol/L (22.0-30.0); Glucose 184 mg/dl (74-100)
[2024-10-24] MEDS: IPRATROPIUM/ALBUTEROL 3 ML NEB IH ×2 (06:32→12:54)
[2024-10-24 08:00] VITALS: BP 117/60; PULSE 72; RESP 20; TEMP 36.9; O2SAT 91
--- NOTE | 2024-10-24 09:02 | HMH.PHAINT1 ---
Pharmacy Intervention Comments: HOME MEDICATION LIST VERIFIED USING LIST FROM OUTPATIENT PHARMACY AND PT INTERVIEW
[2024-10-24] MEDS: ASPIRIN EC 81MG TABLET 81 MG PO (09:50)
[2024-10-24] MEDS: CARVEDILOL 12.5MG TABLET 12.5 MG PO (09:50)
[2024-10-24] MEDS: OSELTAMIVIR 75MG CAPSULE 75 MG PO (09:50)
[2024-10-24] MEDS: ENOXAPARIN 40MG/0.4ML SYRINGE 40 MG SUBCUT (09:52)
[2024-10-24 11:53] LABS: POC Glucose,Bedside 175 (70-110)
[2024-10-24 12:00] VITALS: BP 108/56; PULSE 64; RESP 22; TEMP 36.6; O2SAT 90
--- NOTE | 2024-10-24 12:39 | EXP.DC.SUM ---
General Admission date:: 10/23/24 Discharge date: 10/24/24 HPI HPI HPI: Mr. Ryan is a 69-year-old male with a past medical history notable for coronary artery disease, carotid stenosis, hypertension with hypertensive heart disease, a reported history of COPD (though he is not on maintenance inhalers and is a remote smoker), type 2 diabetes mellitus, and hyperlipidemia. He presents to the ED complaining of generalized malaise that began on Sunday, October 20, 2024. He reports that after initially feeling unwell, he sought care with his primary care provider on October 21, and tested positive for influenza A. Since that time, his condition has progressively worsened. He describes a persistent, dry, hacking cough accompanied by shortness of breath, diffuse body aches, and significant gastrointestinal symptoms including nausea, vomiting, and diarrhea, which have impaired his ability to maintain adequate oral intake. On arrival, his oxygen saturation on room air was in the mid-to-high 80s, prompting initiation of supplemental oxygen at 2L/min via nasal cannula. Physical examination revealed a patient who was lying in bed, not in acute distress despite his symptoms, with clear breath sounds bilaterally and no wheezing appreciated on auscultation. Given his reported history of COPD, a DuoNeb treatment was administered; however, this intervention did not yield a noticeable improvement in his oxygenation status. Initial laboratory workup demonstrated mild hyponatremia, a low serum bicarbonate with a corresponding low pCO2 on the venous blood gas (suggesting a respiratory alkalosis possibly related to his influenza infection), and mild hypomagnesemia. An EKG performed in the ED revealed normal sinus rhythm with frequent premature ventricular contractions but no acute ST changes to suggest ischemia. Overall, his clinical presentation is consistent with an influenza A infection complicated by dehydration (secondary to his gastrointestinal losses) and respiratory compromise, in the context of his significant cardiovascular history, warrants admission for further monitoring and evaluation. Hospital Course Hospital Course Hospital Course: Presentation is most consistent with an influenza A infection complicated by dehydration and electrolyte derangements, with his underlying cardiovascular disease (CAD, carotid stenosis, hypertensive heart disease) increasing his risk for adverse events. . His oxygen saturation on room air in the high 80s?with only minimal improvement following a DuoNeb treatment?supports mild hypoxemia that has responded appropriately to low-flow oxygen supplementation (2L/min nasal cannula). Given his cardiovascular comorbidities, diabetes, and the potential for further decompensation from influenza, close monitoring is warranted while addressing his dehydration, electrolyte abnormalities, and respiratory status. Did well during admission. Weaned to room air. Satting in the low 90s on morning of discharge. Tolerating p.o. intake. White count normal with stable kidney function. Will discharge home with family and close follow-up with PCP for further management as an outpatient. Problems addressed as follows: Influenza A Infection -Patient found to have influenza A on comprehensive respiratory panel. Was having symptoms of cough, body aches, nausea and vomiting. All consistent with flu infection. Initiated on Tamiflu. Will continue 75 mg twice daily for 5 days. Tylenol for fever. Showing some improvement by morning. Able to wean oxygen to room air by morning. Patient satting 90 to 91% at minimum even with exertion. Initiated on Trelegy 100 inhaler due to history of smoking and COPD component. Would benefit from further evaluation for COPD as an outpatient. CAD, hypertension Heart failure preserved ejection fraction - History of CAD, carotid stenosis, and hypertensive heart disease; EKG reveals frequent PVCs. Did well with.. Continue home regimen of carvedilol 12.5 mg twice daily, Crestor 5 mg daily. Review of chart shows echo from 2020 with visually estimated ejection fraction 50% with segmental wall motion abnormality. Has grade 1 diastolic dysfunction. Encourage discussion of initiation of diuretic with PCP. Patient has symptomatic but stable CHF. Needs further management when he is not sick. Diabetes Management -History of diabetes. Blood glucose 212 on admission. Treated with sliding scale insulin and fingersticks ACHS. Resume home metformin at discharge. Total time spent on discharge 36 minutes in counseling, documentation, chart review, and direct care with patient. Exam Data for Last 24 hours Vital signs and Labs for Last 24 Hours: Temp Pulse Resp BP Pulse Ox O2 Del Method O2 Flow Rate 97.8 F 64 22 108/56 L 90 L Room Air 2 10/24/24 12:10/24/24 12:10/24/24 12:10/24/24 12:10/24/24 12:10/24/24 12:10/24/24 11:00 Laboratory Results - last 24 hr 10/23/24 17:10: WBC 7.4, RBC 5.50, Hgb 16.4, Hct 47.2, MCV 85.8, MCH 29.8, MCHC 34.7, RDW 13.1, Plt Count 163, MPV 10.9 H, Neut % (Auto) 82.5 H, Lymph % (Auto) 10.5, Roberts % (Auto) 6.2, Eos % (Auto) 0.1, Baso % (Auto) 0.3, Neut # (Auto) 6.1, Lymph # (Auto) 0.8, Roberts # (Auto) 0.5, Eos # (Auto) 0.0, Baso # (Auto) 0.0, Sodium 135 L, Potassium 4.3, Chloride 103, Carbon Dioxide 19 L, Anion Gap 17.3 H, BUN 14, Creatinine 0.80, Estimated Creat Clear 98, Estimated GFR 96, Est GFR ( Amer) 117, Glucose 212 H, Calcium 8.5, Magnesium 1.5 L, Total Bilirubin 1.0, AST 36, ALT 27, Alkaline Phosphatase 88, Total Protein 7.2, Albumin 4.3, Globulin 2.9, Albumin/Globulin Ratio 1.5, HCV Ab ALEJANDRO w/Rflx PCR Qn Negative, HIV Ag/Ab Combo Qual Negative 10/23/24 17:22: VBG pH 7.45 H, VBG pCO2 27.4 L, VBG pO2 71.9 H, VBG HCO3 18.6 L, VBG Total CO2 19.5 L, VBG O2 Saturation 94.6 H, VBG Base Excess -5.4 L, VBG Lactic Acid 1.4 10/23/24 17:29: SARS-CoV-2 (PCR) Not detected, Influenza A Untype (PCR) Detected A, Influenza Type B (PCR) Not detected 10/23/24 20:33: NT-Pro-B Natriuret Pep 699 H 10/23/24 21:24: POC Glucose 264 H 10/24/24 04:19: WBC 7.8, RBC 5.03, Hgb 15.1, Hct 44.2, MCV 87.9, MCH 30.0, MCHC 34.2, RDW 12.9, Plt Count 139 L, MPV 11.0 H, Neut % (Auto) 80.2 H, Lymph % (Auto) 14.0, Roberts % (Auto) 5.4, Eos % (Auto) 0.0 L, Baso % (Auto) 0.1, Neut # (Auto) 6.2, Lymph # (Auto) 1.1, Roberts # (Auto) 0.4, Eos # (Auto) 0.0, Baso # (Auto) 0.0, Sodium 135 L, Potassium 4.3, Chloride 104, Carbon Dioxide 22, Anion Gap 13.3, BUN 15, Creatinine 0.90, Estimated Creat Clear 92, Estimated GFR 84, Est GFR ( Amer) 102, Glucose 184 H, Calcium 7.9 L, Magnesium 2.0 D 10/24/24 05:29: POC Glucose 186 H 10/24/24 11:41: POC Glucose 175 H I & O for Last 24 hours: Intake & Output 10/21/24 10/22/24 10/23/24 10/24/24 23:59 23:59 23:59 23:59 Intake Total 600 / 600 Output Total 0 / 0 Balance 600 / 600 Weight 90.809 kg 90.582 kg Constitutional Constitutional: no acute distress, average body habitus, chronically ill appearing and cooperative *Routine HEENT Exam Head: Present normocephalic Eye: Present EOMI and PERRL ENT: Present mucous membranes moist *Routine Neck Exam Neck: Present supple; Absent lymphadenopathy *Routine Respiratory Exam Respiratory: Present prolonged expiratory phase; Absent rhonchi, wheezes or crackles *Routine Cardiovascular Exam Cardiovascular: Present RRR *Routine Abdominal Exam Abdominal: Present soft and normoactive bowel sounds; Absent tenderness *Routine Rectal Exam Patient deferred: visual exam *Routine Exam Patient deferred: penile exam *Routine Extremities Exam Extremities: Absent cyanosis, clubbing or edema *Routine Skin Exam Skin: Present intact and warm; Absent rash *Routine Neurological Exam Neurological: Present alert, oriented X3 and moving all extremities; Absent altered mental status Routine Psychiatric Exam Psychiatric: Present normal affect Results Data Completed and Pending Labs on day of discharge: Labs from last 24 hours 10/24/24 10/24/24 10/24/24 11:41 05:29 04:19 WBC 7.8 RBC 5.03 Hgb 15.1 Hct 44.2 MCV 87.9 MCH 30.0 MCHC 34.2 RDW 12.9 Plt Count 139 L MPV 11.0 H Neut % (Auto) 80.2 H Lymph % (Auto) 14.0 Roberts % (Auto) 5.4 Eos % (Auto) 0.0 L Baso % (Auto) 0.1 Neut # (Auto) 6.2 Lymph # (Auto) 1.1 Roberts # (Auto) 0.4 Eos # (Auto) 0.0 Baso # (Auto) 0.0 VBG pH VBG pCO2 VBG pO2 VBG HCO3 VBG Total CO2 VBG O2 Saturation VBG Base Excess VBG Lactic Acid Sodium 135 L Potassium 4.3 Chloride 104 Carbon Dioxide 22 Anion Gap 13.3 BUN 15 Creatinine 0.90 Estimated Creat Clear 92 Estimated GFR 84 Est GFR ( Amer) 102 Glucose 184 H POC Glucose 175 H 186 H Calcium 7.9 L Magnesium 2.0 D Total Bilirubin AST ALT Alkaline Phosphatase NT-Pro-B Natriuret Pep Total Protein Albumin Globulin Albumin/Globulin Ratio SARS-CoV-2 (PCR) HCV Ab ALEJANDRO w/Rflx PCR Qn HIV Ag/Ab Combo Qual Influenza A Untype (PCR) Influenza Type B (PCR) 10/23/24 10/23/24 10/23/24 21:24 20:33 17:29 WBC RBC Hgb Hct MCV MCH MCHC RDW Plt Count MPV Neut % (Auto) Lymph % (Auto) Roberts % (Auto) Eos % (Auto) Baso % (Auto) Neut # (Auto) Lymph # (Auto) Roberts # (Auto) Eos # (Auto) Baso # (Auto) VBG pH VBG pCO2 VBG pO2 VBG HCO3 VBG Total CO2 VBG O2 Saturation VBG Base Excess VBG Lactic Acid Sodium Potassium Chloride Carbon Dioxide Anion Gap BUN Creatinine Estimated Creat Clear Estimated GFR Est GFR ( Amer) Glucose POC Glucose 264 H Calcium Magnesium Total Bilirubin AST ALT Alkaline Phosphatase NT-Pro-B Natriuret Pep 699 H Total Protein Albumin Globulin Albumin/Globulin Ratio SARS-CoV-2 (PCR) Not detected HCV Ab ALEJANDRO w/Rflx PCR Qn HIV Ag/Ab Combo Qual Influenza A Untype (PCR) Detected A Influenza Type B (PCR) Not detected 10/23/24 10/23/24 17:22 17:10 WBC 7.4 RBC 5.50 Hgb 16.4 Hct 47.2 MCV 85.8 MCH 29.8 MCHC 34.7 RDW 13.1 Plt Count 163 MPV 10.9 H Neut % (Auto) 82.5 H Lymph % (Auto) 10.5 Roberts % (Auto) 6.2 Eos % (Auto) 0.1 Baso % (Auto) 0.3 Neut # (Auto) 6.1 Lymph # (Auto) 0.8 Roberts # (Auto) 0.5 Eos # (Auto) 0.0 Baso # (Auto) 0.0 VBG pH 7.45 H VBG pCO2 27.4 L VBG pO2 71.9 H VBG HCO3 18.6 L VBG Total CO2 19.5 L VBG O2 Saturation 94.6 H VBG Base Excess -5.4 L VBG Lactic Acid 1.4 Sodium 135 L Potassium 4.3 Chloride 103 Carbon Dioxide 19 L Anion Gap 17.3 H BUN 14 Creatinine 0.80 Estimated Creat Clear 98 Estimated GFR 96 Est GFR ( Amer) 117 Glucose 212 H POC Glucose Calcium 8.5 Magnesium 1.5 L Total Bilirubin 1.0 AST 36 ALT 27 Alkaline Phosphatase 88 NT-Pro-B Natriuret Pep Total Protein 7.2 Albumin 4.3 Globulin 2.9 Albumin/Globulin Ratio 1.5 SARS-CoV-2 (PCR) HCV Ab ALEJANDRO w/Rflx PCR Qn Negative HIV Ag/Ab Combo Qual Negative Influenza A Untype (PCR) Influenza Type B (PCR) DS: Diagnosis Discharge Diagnosis (1) Respiratory failure: Status: Acute Code(s): J96.90 - Respiratory failure, unspecified, unspecified whether with hypoxia or hypercapnia (2) Type 2 diabetes mellitus: Status: Chronic Code(s): E11.9 - Type 2 diabetes mellitus without complications Qualifiers: Diabetes mellitus complication status: without complication Diabetes mellitus medical terminologist insulin use: without medical terminologist use Qualified Code(s): E11.9 - Type 2 diabetes mellitus without complications (3) Hyperlipemia: Status: Chronic Code(s): E78.5 - Hyperlipidemia, unspecified Qualifiers: Hyperlipidemia type: pure hypercholesterolemia Qualified Code(s): E78.00 - Pure hypercholesterolemia, unspecified; E78.0 - Pure hypercholesterolemia (4) Essential (primary) hypertension: Status: Chronic Code(s): I10 - Essential (primary) hypertension (5) Influenza A: Status: Acute Code(s): J10.1 - Influenza due to other identified influenza virus with other respiratory manifestations (6) CAD (coronary artery disease): Status: Chronic Code(s): I25.10 - Atherosclerotic heart disease of [place] coronary artery without angina pectoris Qualifiers: Associated angina: without angina Coronary Disease-Associated Artery/Lesion type: [place] artery [place] vs. transplanted heart: [place] heart Qualified Code(s): I25.10 - Atherosclerotic heart disease of [place] coronary artery without angina pectoris Meds Home Medications and Allergies Home Medications ?Medication ?Instructions ?Recorded ?Confirmed ?Type metformin 500 mg tablet,extended 1,000 mg PO BID Diabetes 01/23/19 10/24/24 History release 24 hr aspirin 81 mg tablet 81 mg PO DAILY 09/27/22 10/23/24 History carvedilol 12.5 mg tablet 12.5 mg PO BID #180 tabs 10/04/23 10/23/24 Rx rosuvastatin 5 mg tablet 5 mg PO DAILY #90 tabs 10/04/23 10/23/24 Rx fluticasone fur. 100 mcg-umeclid 1 inh inhalation DAILY #0 ea 10/24/24 Rx 62.5 mcg-vilant 25 mcg inhalat.powder (Trelegy Ellipta) oseltamivir 75 mg capsule (Tamiflu) 75 mg PO BID 4 days #8 caps 10/24/24 Rx promethazine 6.25 mg-codeine 10 5 ml PO Q4HP PRN Cough 7 days #118 10/24/24 Rx mg/5 mL syrup mL New Prescriptions to Start Prescriptions: oseltamivir [Tamiflu] Chad Carney promethazine-codeine Chad Carney Allergies Allergy/AdvReac Type Severity Reaction Status Date / Time meloxicam (From MOBIC) Allergy Unknown Verified 10/06/24 08:31 atorvastatin (From Lipitor) AdvReac Severe Muscle Pain Verified 10/06/24 08:31 ticagrelor (From Brilinta) AdvReac Intermediate dyspnea Verified 10/06/24 08:31 Discharge Plan Disposition Patient Disposition: Home, Self-Care Condition: Fair Follow up Plan Follow up with: Jimmy Echols MD [Primary Care Provider] - 11/03/24 10:00 am Prescriptions/Medication Reconciliation: New promethazine-codeine 6.25-10 mg/5 mL Syrup 5 ml PO Q4HP PRN (Reason: Cough) 7 Days Qty: 118 0RF oseltamivir [Tamiflu] 75 mg Capsule 75 mg PO BID 4 Days Qty: 8 0RF Trelegy Ellipta 100-62.5-25 mcg Blister With Device 1 inh inhalation DAILY Qty: 0 0RF Continued aspirin 81 mg tablet 81 mg PO DAILY carvedilol 12.5 mg tablet 12.5 mg PO BID Qty: 180 5RF rosuvastatin 5 mg tablet 5 mg PO DAILY Qty: 90 3RF metformin 500 mg tablet extended release 24 hr 1,000 mg PO BID Problem Reconciliation Problems Reviewed?: Yes Patient Discharge Instructions ACTIVITY: Continue current activity DIET: continue same diet Patient Instructions: Colds and Flus (Alternative Therapy), DI for H1N1 Influenza -- Adult, DI for Respiratory Failure Print Language: Vietnamese Providers Primary Care Provider: Jimmy Echols Admit Provider: Chad Carney Attending Provider: Chad Carney
[2024-10-24] MEDS: FLUTICASONE/UMECLIDIN/VILANTER 100/62.5/25MCG INHALER 1 PUFF IH (12:54)
--- NOTE | 2024-10-27 11:22 | SW/DCPLANNER ---
Spoke with patient on the phone. Patient stated that he is still feeling pretty rough. Patient stated that he is aware of his upcoming appointments. Patient stated that his new medicine was brought to his bedside. Patient stated that he has no concerns or questions at this time. Noah Rosen
== END 2024-10-24 15:14 | disposition home or self-care (01) ==
LOC: ER 17:17 → 2ND 20:26
PROVIDERS: Nurse Practitioner Family; Admitting Provider Internal Medicine Adolescent Medicine; Emergency Provider Emergency Medicine; PCP Internal Medicine Adolescent Medicine; Visit Provider Internal Medicine Adolescent Medicine
DX: J96.01 Acute respiratory failure with hypoxia (principal); J10.1 Influenza due to other identified influenza virus with other respiratory manifestations; I25.10 Atherosclerotic heart disease of native coronary artery without angina pectoris; I65.29 Occlusion and stenosis of unspecified carotid artery; I11.0 Hypertensive heart disease with heart failure; I50.32 Chronic diastolic (congestive) heart failure; E78.00 Pure hypercholesterolemia, unspecified; J44.9 Chronic obstructive pulmonary disease, unspecified; E87.1 Hypo-osmolality and hyponatremia; E86.0 Dehydration; E83.42 Hypomagnesemia; Z79.82 Long term (current) use of aspirin; Z79.899 Other long term (current) drug therapy; Z95.1 Presence of aortocoronary bypass graft; Z87.891 Personal history of nicotine dependence; Z79.84 Long term (current) use of oral hypoglycemic drugs
CPT/HCPCS: 71046; 80048; 80053; 82803; 82962; 83735; 83880; 85025; 86803; 87040; 87389; 87636; 93005; 99285; G0378; J0131; J1650; J2405; J3475; J7030; J7620

== ENCOUNTER 2024-11-10 14:30 | Outpatient (CLI) | payer MEDICARE, SELFPAY ==
[2024-11-10 15:30] VITALS: PULSE 76; PULSE 80
[2024-11-10] MEDS: ALBUTEROL 0.083% 2.5 MG/3 ML NEB IH (15:30)
== END 2024-11-10 23:59 | disposition home or self-care (01) ==
LOC: RT 14:32
PROVIDERS: PCP Internal Medicine Adolescent Medicine; Visit Provider Internal Medicine Adolescent Medicine
DX: J96.01 Acute respiratory failure with hypoxia (principal)
CPT/HCPCS: 94010; 94640; 94727; 94729; J7613

== ENCOUNTER 2024-11-18 08:08 | Outpatient (CLI) | payer MEDICARE, SELFPAY ==
--- NOTE | 2024-11-18 08:10 | CT_ITS ---
FINAL REPORT CLINICAL HISTORY: SCREENING former smoker, quit 20 years ago. smoked 1 ppd x 45 years 35 years hx of prostate cancer COMPARISON: 07/26/2021 FINDINGS: CTDI vol (mGy): 2.90 DLP: 103.[address] images of the chest were obtained using the low-dose protocol for screening. There is no evidence of mediastinal or hilar mass or adenopathy. No axillary mass or adenopathy is identified. On the lung window images, an oval nodule is seen along the major fissure on image 40 of series 3 which is stable from prior exam and consistent with a intrafissural lymph node. There is a pneumatocele in the left lower lobe on image 54 which is also unchanged. There is interstitial prominence in the lower lobes and right middle lobe suspicious for interstitial pneumonia, new from prior exam. There are emphysematous changes. Limited imaging of the upper abdomen demonstrates a right renal mass most consistent with a cyst. IMPRESSION: Interval development of interstitial prominence at the bases, favor pneumonia. No suspicious pulmonary nodule. Lung RADS category 1s . Recommend 12 month followup low-dose CT for further evaluation. Reviewed, Interpreted and Dictated by Mp Azar MD Transcribed by Amelia Shi Authenticated and [facility]
--- NOTE | 2024-11-18 08:18 | CT_ITS ---
FINAL REPORT CLINICAL HISTORY: EDIL COMPARISON: 10/13/2022 FINDINGS: CT NECK ANGIO, WITHOUT AND WITH CONTRAST TECHNIQUE: Thin section axial CT with contrast with multiplanar 3D MIP reconstruction. This study was performed with techniques to keep radiation doses as low as reasonably achievable, (ALARA). Individualized dose reduction techniques using automated exposure control or adjustment of mA and/or kV according to the patient's size were employed. NASCET criteria and technique was utilized during interpretation. FINDINGS: Aortic arch: Arch shows no significant narrowing. Great vessel origins are widely patent. Right carotid: Moderately segment of stenosis of the proximal mid right ICA up to 60%, stable. There is no ulceration. Left carotid: Left carotid artery is widely patent. Vertebrals: There is new occlusion of the right vertebral artery. The left vertebral artery is widely patent. 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 Stable moderate right proximal ICA stenosis Reviewed, Interpreted and Dictated by Mp Azar MD Transcribed by Gemma Estrella Authenticated and [facility]
[2024-11-18] MEDS: 0.9 % SODIUM CHLORIDE 50 ML VIAL IV (08:57)
[2024-11-18] MEDS: SODIUM CHLORIDE 0.9% 10ML SYR (RAD ONLY) 10 ML IV (08:57)
[2024-11-18] MEDS: IOPAMIDOL-370 (76%);100ML BOTTLE 100 ML IV (08:57)
== END 2024-11-18 23:59 | disposition home or self-care (01) ==
PROVIDERS: PCP Internal Medicine Adolescent Medicine; Visit Provider Nurse Practitioner Family
DX: I25.10 Atherosclerotic heart disease of native coronary artery without angina pectoris (principal); I65.21 Occlusion and stenosis of right carotid artery; Z87.891 Personal history of nicotine dependence
CPT/HCPCS: 70498; 71271; Q9967